=== PATIENT | female | born 1990 | race African-American/Black ===

== ENCOUNTER 2017-02-17 11:56 | Inpatient (IN) | payer MEDICAID ==
[2017-02-17] MEDS ORDERED: MAGNESIUM SULFATE/D5W 2 GM/200 ML RTUPB IV ONE (12:05)
--- NOTE | 2017-02-17 12:06 | ER Document Report ---
ED General - General Chief Complaint: Seizure Stated Complaint: POSSIBLE SEIZURE Time Seen by Provider: 02/17/17 12:02 Mode of Arrival: Medic Information source: Emergency Med Personnel Cannot obtain history due to: Other - unresponsive, postictal Notes: This is a 26-year-old female who per family is around 5 months , for whom EMS was called for seizures. Patient has no prior history of seizures. EMS states that patient had 5 seizures described as generalized tonic-clonic prior to their arrival. Patient did have 2 seizures in route to the hospital in both were treated with Versed for a total of 4 mg of Versed in route. EMS also gave 2 g of magnesium in route. The patient minimally responsive and postictal upon arrival. TRAVEL OUTSIDE OF THE [place] IN LAST 30 DAYS: No - Related Data Allergies/Adverse Reactions: ibuprofen [From Motrin] Allergy (Verified 12/12/14 21:37) Past Medical History - General Information source: Friend - Social History Smoking Status: Unknown if Ever Smoked Frequency of alcohol use: unknown Drug Abuse: Other - unknown Family History: Reviewed & Not Pertinent - Past Medical History Cardiac Medical History: Reports: Hx Hypertension Surgical Hx: Other - unknown - Immunizations Immunizations up to date: Yes Hx Diphtheria, Pertussis, Tetanus Vaccination: Yes Hx Pneumococcal Vaccination: 11/02/12 Review of Systems - Review of Systems -: Yes ROS unobtainable due to patient's medical condition Physical Exam - General General appearance: Unresponsive Notes: spontaneous respirations, gag reflex appears to be intact. Minimal response to sternal rub. - HEENT Head: Normocephalic, Atraumatic Conjunctiva: Normal Notes: pupils 3mm, minimally responsive - Respiratory Respiratory status: No respiratory distress Breath sounds: Other - CTA bilaterally anteriorly - Cardiovascular Rhythm: Regular, Tachycardia Heart sounds: Normal auscultation, S1 appreciated, S2 appreciated Murmur: No - Abdominal Inspection: Other - gravic Bowel sounds: Normal Tenderness: Nontender - Extremities General upper extremity: Normal inspection General lower extremity: Normal inspection - Neurological Notes: postictal, minimally responsive, unable to follow commands - Skin Skin Temperature: Warm Skin Moisture: Dry Skin Color: Normal Skin irregularity: negative: Rash Course - Re-evaluation Re-evalutation: 02/17/17 12:05 Patient presents minimally responsive and post ictal after total of 4 mg of Versed by EMS. She is still hypertensive with systolic 190. heart tones are 138-148. I discussed the case immediately with OB agricultural extension officer Dr. Oliver who is on her way here to evaluate the patient as well. Per family the patient is due sometime in May which puts her at a minimum of 24 weeks at this time. 02/17/17 12:[address] Oliver is here evaluating the patient. Magnesium is infusing. She has received labetalol. Bedside ultrasound is being performed. At this time the patient continues spontaneous respirations but no purposeful movements as she is still post ictal and has received benzos. I have equipment for intubation ready... discussed with OB who advises to hold intubation at this time. Pt satting 100% on NRB. 02/17/17 12:44 Dr. Oliver performing bedside ultrasound and heart tones 128. No sign of maurice abruption at this time. Betamethasone ordered 02/17/17 13:21 Patient returned from head CT. Magnesium infusing. Blood pressure 151/118. Dr. Oliver again with bedside ultrasound is concerning for possible abruption and decision made to take patient for emergent at this time. - Laboratory Result Diagrams: 02/17/17 12:15 02/17/17 12:58 Laboratory results interpreted by me: 02/17/17 02/17/17 12:15 12:58 WBC 15.2 H Hgb 11.8 L MCV 78 L MCH 23.1 L MCHC 29.7 L RDW 25.1 H Plt Count 146 L Band Neutrophils % 1 L Monocytes % (Manual) 2 L Metamyelocytes % 1 H Abs Neuts (Manual) 12.0 H Sodium 132.3 L Glucose 219 H Uric Acid 10.3 H Calcium 8.3 L Direct Bilirubin 0.6 H AST 191 H ALT 76 H Alkaline Phosphatase 302 H Lactate Dehydrogenase 2814 H Total Protein 5.9 L Albumin 2.6 L - Diagnostic Test Radiology reviewed: Image reviewed - Head CT normal, Reports reviewed Critical Care Note - Critical Care Note Total time excluding time spent on procedures (mins): 45 - minutes of critical care time spent in direct contact evaluating and reevaluating the patient, treating symptoms, reviewing labs and studies and speaking with family and consultants excluding any procedures Discharge - Discharge Clinical Impression: Eclampsia Condition: Critical Disposition: ADMITTED INPATIENT Admitting Provider: [facility] - Dr. Oliver Unit Admitted: OR - to OR for , then to ICU
[2017-02-17] MEDS ORDERED: HYDRALAZINE HCL INJ/PF 20 MG/1 ML SDV ONE (12:08)
[2017-02-17] MEDS ORDERED: LABETALOL HCL INJ 20 MG/4 ML DISP.SYRIN IV ONE ×2 (12:14→12:17)
[2017-02-17] MEDS ORDERED: MAGNESIUM SULFATE 100 ML IV ONE (12:18)
[2017-02-17 12:33] LABS: HEMATOCRIT 39.8 % (36.0-47.0); HEMOGLOBIN 11.8 g/dL (12.0-15.5); MEAN CORPUSCULAR HEMOGLOBIN 23.1 pg (27.0-33.4); MEAN CORPUSCULAR HGB CONC 29.7 g/dL (32.0-36.0); MEAN CORPUSCULAR VOLUME 78 fl (80-97); RED BLOOD COUNT 5.12 10^6/uL (3.72-5.28); RED CELL DISTRIBUTION WIDTH 25.1 % (11.5-14.0); WHITE BLOOD COUNT 15.2 10^3/uL (4.0-10.5)
[2017-02-17 12:55] LABS: HGB HCT DIFFERENCE -4.4
[2017-02-17 12:57] LABS: BAND NEUTROPHILS % (MANUAL) 1 % (3-5); BASOPHILS % (MANUAL) 0 % (0-2); EOSINOPHILS % (MANUAL) 0 % (0-6); LYMPHOCYTES % (MANUAL) 19 % (13-45); TOTAL CELLS COUNTED 100
[2017-02-17 13:01] LABS: ANISOCYTOSIS 2+; HELMET CELLS SLIGHT; HYPOCHROMASIA SLIGHT; MICROCYTOSIS 1+; POIKILOCYTOSIS 1+; POLYCHROMASIA SLIGHT
[2017-02-17 13:02] LABS: SCHISTOCYTES SLIGHT; TEAR DROP CELLS SLIGHT
[2017-02-17 13:03] LABS: PLATELET CLUMPS PRESENT
[2017-02-17] MEDS ORDERED: BETAMET ACET/BETAMET NA INJ 6 MG/1 ML IM ONE (13:08)
[2017-02-17] MEDS ORDERED: CEFAZOLIN 2 GM/D5W RTU 2 GM/50 ML RTUPB IV ONE (13:23)
[2017-02-17 13:39] LABS: ALANINE AMINOTRANSFERASE 76 U/L (9-52); ALBUMIN 2.6 g/dL (3.5-5.0); ALKALINE PHOSPHATASE 302 U/L (38-126); ANION GAP 6 (5-19); ASPARTATE AMINO TRANSFERASE 191 U/L (14-36); BILIRUBIN,DIRECT 0.6 mg/dL (0.0-0.4); BILIRUBIN,TOTAL 0.9 mg/dL (0.2-1.3); BLOOD UREA NITROGEN 10 mg/dL (7-20); CALCIUM 8.3 mg/dL (8.4-10.2); CARBON DIOXIDE 22 mmol/L (22-30); CHLORIDE 104 mmol/L (98-107); CREATININE RESULT 0.85 mg/dL (0.52-1.25); GLUCOSE 219 mg/dL (75-110); POTASSIUM 3.7 mmol/L (3.6-5.0); SODIUM 132.3 mmol/L (137-145); TOTAL PROTEIN 5.9 g/dL (6.3-8.2); URIC ACID 10.3 mg/dL (2.5-6.2)
[2017-02-17] MEDS ORDERED: PROPOFOL INJ 200 MG/20 ML VIAL IV ONE (13:40)
[2017-02-17] MEDS ORDERED: OXYTOCIN 10 UNIT/ML VIAL ONE (13:40)
[2017-02-17] MEDS ORDERED: FENTANYL CITRATE INJ/PF 100 MCG/2 ML AMPUL ONE (13:40)
[2017-02-17] MEDS ORDERED: MORPHINE SULFATE 10 MG/ML INJ ONE (13:41)
[2017-02-17 13:47] LABS: LDH 2814 U/L (313-618)
[2017-02-17 14:01] LABS: ARTERIAL BLOOD BASE EXCESS -8.6 mmol/L; ARTERIAL BLOOD O2 SATURATION 29.7 % (94-98)
[2017-02-17 14:23] LABS: PROTHROMBIN TIME 13.2 SEC (11.4-15.4)
[2017-02-17 14:24] LABS: PARTIAL THROMBOPLASTIN TIME 28.7 SEC (23.5-35.8)
--- NOTE | 2017-02-17 14:50 | Admission Physical ---
Datetime Report Generated by CPN: 02/17/2017 14:50 CURRENT ADMISSION Chief Complaint: Signs/Symptoms Gestational HTN; Illness; Other Chief Complaint Other: multiple seizures at home and 2 observed by equipment operat0r in route to hospital. was given Mag and Versed (4 mg) enroute. Patient not responsive entire time in ambulance and in ER. Indication for Induction: Eclampsia Indication for Induction- Other: HELLP syndrome, signs of abruption identified on sono and nonreassuring status. Admit Plan: Admit to Unit Admit Plan- Other: emergent c/s for abruption performed with verbal permission from [facility] and patient's brother. ALLERGIES Medication Allergies: ibuprofen (12/12/2014) PHYSICAL EXAM General: Abnormal HEENT: Abnormal Neurologic: Abnormal Thyroid: Normal Heart: Normal Lungs: Normal Breast: Normal Back: Normal Abdomen: Normal Genitourinary Exam: Normal Extremities: Normal DTRs: Abnormal Pelvic Type: Not Done Physical Exam Comments: 2+ DTRs. patient unresponsive as above. O2 sat 100% on room air, BPs all severe range except for immediately after Labetolol given. attempts to illicit response from patient unsuccessful. Vital Signs: Reviewed Details Vital Signs: severe range pressures FETUS A FHR- Baseline: 120 Presentation: Vertex Admit Comment: see above comments regarding emergent delivery by classical delivery INFORMED CONSENT Signature: with User ID: [email or web address]
[2017-02-17] MEDS ORDERED: ACETAMINOPHEN 325 MG TABLET PO PRN (14:51)
[2017-02-17] MEDS ORDERED: SIMETHICONE 80 MG TAB.CHEW PO PRN (14:51)
[2017-02-17] MEDS ORDERED: RINGERS SOLUTION,LACTATED 1,000 ML IV PRN (14:51)
[2017-02-17] MEDS ORDERED: ACETAMINOPHEN 100 ML IV PRN (14:51)
[2017-02-17] MEDS ORDERED: OXYTOCIN/NORMAL SALINE 1,000 ML IV PRN (14:51)
[2017-02-17] MEDS ORDERED: MEASLES,MUMPS&RUBELLA VACC/PF 0.5 ML VIAL SUBCUT PRN (14:51)
[2017-02-17] MEDS ORDERED: DIPH/PERTUSS(ACELL)/TETANUS VAC/PF 0.5 ML SYR (>=10YO) IM PRN (14:51)
[2017-02-17] MEDS ORDERED: DEXTROSE 50%-WATER 25 GM/50 ML DISP.SYRIN IV PRN ×2 (14:56)
[2017-02-17] MEDS ORDERED: DEXTROSE 40% GEL 15 GM TUBE PO PRN ×2 (14:56)
[2017-02-17] MEDS ORDERED: GLUCAGON,HUMAN RECOMB 1 MG INJ SUBCUT PRN (14:56)
[2017-02-17 15:45] LABS: ARTERIAL BLOOD BASE EXCESS -5.4 mmol/L; ARTERIAL BLOOD O2 SATURATION 96.8 % (94-98)
[2017-02-17 15:46] LABS: APPEARANCE,URINE CLEAR; BILIRUBIN,URINE NEGATIVE (NEGATIVE); GLUCOSE, URINE NEGATIVE (NEGATIVE); KETONES,URINE NEGATIVE (NEGATIVE); LEUKOCYTE ESTERASE,URINE NEGATIVE (NEGATIVE); NITRITE,URINE NEGATIVE (NEGATIVE); PROTEIN,URINE 100 mg/dL (NEGATIVE); URINE SPECIFIC GRAVITY 1.008; UROBILINOGEN,URINE NEGATIVE mg/dL (<2.0)
[2017-02-17] MEDS ORDERED: PHARMACY COMMUNICATION ORDER MC NR (16:00)
[2017-02-17] MEDS ORDERED: ACETAMINOPHEN 325 MG TABLET NG PRN (16:04)
[2017-02-17] MEDS ORDERED: ACETAMINOPHEN 325 MG TABLET NG ONE (16:04)
[2017-02-17] MEDS ORDERED: SIMETHICONE 80 MG TAB.CHEW NG PRN (16:05)
[2017-02-17 16:10] LABS: URINE BARBITURATES SCREEN NEGATIVE; URINE METHADONE SCREEN NEGATIVE; URINE PHENCYCLIDINE SCREEN NEGATIVE
[2017-02-17 16:13] LABS: URINE OPIATES LOW UNCONFIRMED POSITIVE
--- NOTE | 2017-02-17 16:14 | OPERATIVE REPORT E ---
Operative Report NAME: TONY MELTON : 1990 AGE: 26Y DATE OF SURGERY: ROOM: 605 PREOPERATIVE DIAGNOSES: 1. Intrauterine at 26 weeks and 0 days. 2. Eclampsia. 3. Hemolysis, elevated liver enzymes, and low platelet count syndrome. 4. Abruption. POSTOPERATIVE DIAGNOSES: 1. Intrauterine at 26 weeks and 0 days. 2. Eclampsia. 3. Hemolysis, elevated liver enzymes, and low platelet count syndrome. 4. Abruption. OPERATION: section with classical uterine incision. SURGEON: RADHA ROMAN M.D. ANESTHESIA: Dr. Prince with general. ESTIMATED BLOOD LOSS: 700 mL. FINDINGS: An approximately 26-week gestational age female infant, cephalic presentation, with a tight nuchal cord x3, partial abruption of the placenta, poor conditions of the placenta. Apgars are unknown at this time. Pathology was, placenta was sent. Cord gases were sent. CONSENT: After informed consent was obtained from the family members, as the patient was unresponsive, her brother and father of her most current children did give consent for an emergent due to the details of the patient's condition. The patient was taken to the operating room and above-noted was performed. PROCEDURE IN DETAIL: The patient was taken to the operating room, prepared and draped in a normal sterile fashion in the supine position. A Pfannenstiel skin incision was made with a scalpel and then carried through the underlying layer of fascia with the same scalpel. The rectus fascia was divided, and the rectus muscle was divided quickly. With good visualization of the bladder and the uterus, a second scalpel was used to create the hysterotomy in a vertical fashion. The endometrial cavity was entered as quickly as possible using surgeon finger fracture. The placenta was then noted, and the abruption was noted as well. The infant was then delivered atraumatically with the above nuchal cord findings noted. The nose and mouth were suctioned with a suction bulb. The cord was clamped and cut quickly, and the infant was handed off to the awaiting neonatology nurse present. The rest of the placenta was removed. The uterus was exteriorized and cleared of clots and debris. The hysterotomy was closed in a running locked fashion. A second layer of same suture was used to imbricate to ensure hemostasis, and the serosa was closed again with #0 Monocryl for a total of 3 layers of closure. Interceed was then placed along the incision. The uterus was then replaced to the abdomen. The peritoneal cavity was cleared of clots and debris. The rectus muscle and peritoneum were reapproximated with 2-0 chromic mattress stitch. The fascia was closed with #0 Vicryl. The subcutaneous layer was closed with plain catgut, and the skin was closed with 4-0 Vicryl. The patient tolerated the procedure well. Sponge, lap, and needle counts were correct x2, and the patient was taken to the ICU in critical condition. DICTATING PHYSICIAN: RADHA ROMAN M.D. [id number] PHY#: [id number] ID: [id number] JOB#: [id number] ACCT: [id number] cc:RADHA ROMAN M.D. >
[2017-02-17 16:20] LABS: PROTHROMBIN TIME 13.4 SEC (11.4-15.4)
[2017-02-17 16:21] LABS: FIBRINOGEN 502 mg/dL (209-497); PARTIAL THROMBOPLASTIN TIME 32.7 SEC (23.5-35.8)
[2017-02-17 16:33] LABS: ALANINE AMINOTRANSFERASE 83 U/L (9-52); ALBUMIN 2.2 g/dL (3.5-5.0); ALKALINE PHOSPHATASE 258 U/L (38-126); ASPARTATE AMINO TRANSFERASE 195 U/L (14-36); BILIRUBIN,DIRECT 0.4 mg/dL (0.0-0.4); BILIRUBIN,TOTAL 0.5 mg/dL (0.2-1.3); BLOOD UREA NITROGEN 10 mg/dL (7-20); CALCIUM 7.7 mg/dL (8.4-10.2); CARBON DIOXIDE 23 mmol/L (22-30); CHLORIDE 107 mmol/L (98-107); CREATININE RESULT 0.78 mg/dL (0.52-1.25); GLUCOSE 78 mg/dL (75-110); TOTAL PROTEIN 4.9 g/dL (6.3-8.2)
[2017-02-17 16:43] LABS: POTASSIUM 3.9 mmol/L (3.6-5.0); SODIUM 133.9 mmol/L (137-145)
--- NOTE | 2017-02-17 16:43 | PDOC CONSULTATION ---
Consultation Consult Date: 02/17/17 Attending physician:: RADHA ROMAN Consult reason:: Ventilator management History of Present Illness Admission Date/PCP: 02/17/17 13:29 RADHA ROMAN MD Patient complains of: Seizure History of Present Illness: TONY MELTON is a 26 year old female, with prior history of hypertension, who is currently in her second trimester of was brought to the emergency room because of multiple seizure episodes. The ambulance was called and the patient was given Versed and magnesium . She was hypertensive on presentation. Patient was intubated, emergent section was performed, eventually was transferred to the intensive care unit. Patient's blood pressure has improved, she is on Diprivan drip. Dr. Roman called for management of ventilator. No noted prior history other than gestational hypertension. Past Medical History Past Medical History: Medication reconciliation pending verification from the patient's pharmacist. Cardiac Medical History: Reports: Hypertension Endocrine Medical History: Reports: Obesity Past Surgical History Past Surgical History: Unknown at this time. Social History Information Source: [facility] Records Smoking Status: Current Every Day Smoker - Reportedly Frequency of Alcohol Use: None Hx Recreational Drug Use: No Drugs: None Family History Family History: Hypertension, Other - Aneurysm of the brain Parental Family History Reviewed: No - unobtainable at this time Children Family History Reviewed: No Sibling(s) Family History Reviewed.: No Medication/Allergy Home Medications: Nifedipine [Procardia Xl 30 mg Tablet] 90 mg PO QAM #90 tab.er.24 12/15/14 Oxycodone HCl/Acetaminophen [Percocet 5-325 mg Tablet] 1 - 2 tab PO ASDIR PRN # 25 tablet 12/15/14 Labetalol HCl [Normodyne 200 mg Tablet] 300 mg PO Q12 #60 tablet 12/16/14 Allergies/Adverse Reactions: ibuprofen [From Motrin] Allergy (Verified 12/12/14 21:37) Review of Systems ROS unobtainable: Due to endotracheal tube, Due to mental status Physical Exam Vital Signs: Temp Pulse Resp BP Pulse Ox 97.6 F 92 25 H 116/90 H 100 02/17/17 16:00 02/17/17 16:00 02/17/17 16:10 02/17/17 16:02 02/17/17 16:10 Intake & Output 02/16/17 02/17/17 02/18/17 06:59 06:59 06:59 Output Total 165 Balance -165 Weight 80 kg General appearance: PRESENT: no acute distress, morbidly obese, other - Intubated and sedated Head exam: PRESENT: atraumatic, normocephalic Eye exam: PRESENT: conjunctiva pink Ear exam: PRESENT: normal external ear exam. ABSENT: drainage Mouth exam: PRESENT: moist, neck supple Neck exam: ABSENT: carotid bruit, JVD Respiratory exam: PRESENT: clear to auscultation bob. ABSENT: retraction, rhonchi, wheezes Cardiovascular exam: PRESENT: RRR. ABSENT: gallop GI/Abdominal exam: PRESENT: hypoactive bowel sounds, soft. ABSENT: distended - Obese Extremities exam: ABSENT: pedal edema Neurological exam: PRESENT: altered - On Diprivan drip Psychiatric exam: ABSENT: agitated Focused psych exam: ABSENT: restlessness Skin exam: PRESENT: dry, warm. ABSENT: cyanosis Results Laboratory Results: 02/17/17 02/17/17 02/17/17 13:37 15:15 15:30 WBC RBC Hgb Hct MCV MCH MCHC RDW Plt Count Carbonic Acid 3.00 H 1.32 HCO3/H2CO3 Ratio 8:1 15:1 ABG pH 7.01 L* 7.30 L ABG pCO2 99.7 H* 43.9 ABG pO2 28.4 L* 98.4 ABG HCO3 24.7 20.9 ABG O2 Saturation 29.7 L 96.8 ABG Base Excess -8.6 -5.4 FiO2 CORD BLOOD 30% Urine Color YELLOW Urine Appearance CLEAR Urine pH 6.0 Ur Specific Malcolm 1.008 Urine Protein 100 H Urine Glucose (UA) NEGATIVE Urine Ketones NEGATIVE Urine Blood LARGE H Urine Nitrite NEGATIVE Ur Leukocyte Esterase NEGATIVE Urine WBC (Auto) 4 Urine RBC (Auto) 2 02/17/17 15:57 WBC Cancelled RBC Cancelled Hgb Cancelled Hct Cancelled MCV Cancelled MCH Cancelled MCHC Cancelled RDW Cancelled Plt Count Cancelled Carbonic Acid HCO3/H2CO3 Ratio ABG pH ABG pCO2 ABG pO2 ABG HCO3 ABG O2 Saturation ABG Base Excess FiO2 Urine Color Urine Appearance Urine pH Ur Specific Malcolm Urine Protein Urine Glucose (UA) Urine Ketones Urine Blood Urine Nitrite Ur Leukocyte Esterase Urine WBC (Auto) Urine RBC (Auto) Impressions: Obstetrics Ultrasound 02/17/17 00:00 IMPRESSION: Heterogeneous mass in the placenta as noted above which is suspicious for a placental abruption. Clinical correlation is recommended. Other findings as noted above Trimester of : Second trimester - 13 weeks 1 day to [address] 02/17/17 12:42 IMPRESSION: NORMAL BRAIN CT WITHOUT CONTRAST. Chest X-Ray 02/17/17 14:54 IMPRESSION: 1. No acute findings in the chest. 2. Support lines and tubes are in satisfactory position. Assessment & Plan - Diagnosis (1) Acute respiratory failure with hypercapnia Is this a current diagnosis for this admission?: Yes (2) Eclampsia Is this a current diagnosis for this admission?: Yes (3) Transaminitis Is this a current diagnosis for this admission?: Yes (4) Hyperglycemia Is this a current diagnosis for this admission?: Yes - Time Time Spent: 50 to 70 Minutes - Plan Summary Plan Summary: Mechanical ventilation with SIMV and pressure support for airway protection. We will do a follow-up chest x-ray and ABG, routine pulmonary toilette per ICU protocol. No reported nor documented history of chronic pulmonary condition, we will try to extubate the patient in the morning. Case discussed with Dr. Roman . Thank you so much for letting us participate in her care. We will follow the patient with you.
[2017-02-17] MEDS: MORPHINE SULFATE 10 MG/ML INJ IV PRN ×3 (16:46→21:27)
[2017-02-17 16:47] LABS: ANION GAP 4 (5-19)
[2017-02-17] MEDS: MAGNESIUM SULFATE 500 ML IV PRN ×2 (16:55→23:11)
[2017-02-17] MEDS: PROPOFOL 100 ML IV PRN ×2 (16:57→19:03)
[2017-02-17 17:04] LABS: HEMATOCRIT 27.3 % (36.0-47.0); HGB HCT DIFFERENCE -1.2; MEAN CORPUSCULAR HEMOGLOBIN 23.2 pg (27.0-33.4); MEAN CORPUSCULAR HGB CONC 31.9 g/dL (32.0-36.0); RED BLOOD COUNT 3.74 10^6/uL (3.72-5.28); WHITE BLOOD COUNT 13.7 10^3/uL (4.0-10.5)
[2017-02-17 17:09] LABS: BASOPHILS % (MANUAL) 0 % (0-2); EOSINOPHILS % (MANUAL) 0 % (0-6); LYMPHOCYTES % (MANUAL) 3 % (13-45); NUCLEATED RED BLOOD CELLS 1 /100 WBC (0); TOTAL CELLS COUNTED 100
[2017-02-17 17:12] LABS: ANISOCYTOSIS 2+; HYPOCHROMASIA 1+; MICROCYTOSIS 2+; OVALOCYTES SLIGHT; POIKILOCYTOSIS 1+; TEAR DROP CELLS SLIGHT
[2017-02-17 17:13] LABS: HEMOGLOBIN 8.7 g/dL (12.0-15.5)
[2017-02-17 17:14] LABS: MEAN CORPUSCULAR VOLUME 73 fl (80-97)
[2017-02-17 17:31] LABS: ALANINE AMINOTRANSFERASE 79 U/L (9-52); ALBUMIN 2.2 g/dL (3.5-5.0); ALKALINE PHOSPHATASE 243 U/L (38-126); ASPARTATE AMINO TRANSFERASE 195 U/L (14-36); BILIRUBIN,DIRECT 0.5 mg/dL (0.0-0.4); BILIRUBIN,TOTAL 0.6 mg/dL (0.2-1.3); BLOOD UREA NITROGEN 11 mg/dL (7-20); CALCIUM 7.6 mg/dL (8.4-10.2); CARBON DIOXIDE 22 mmol/L (22-30); CHLORIDE 107 mmol/L (98-107); CREATININE RESULT 0.73 mg/dL (0.52-1.25); GLUCOSE 81 mg/dL (75-110); POTASSIUM 3.9 mmol/L (3.6-5.0); SODIUM 131.9 mmol/L (137-145); TOTAL PROTEIN 4.9 g/dL (6.3-8.2); URIC ACID 9.2 mg/dL (2.5-6.2)
[2017-02-17 17:42] LABS: ANION GAP 3 (5-19); LDH 2621 U/L (313-618)
[2017-02-17] MEDS ORDERED: DOCUSATE SODIUM 100 MG CAPSULE PO SCH (18:00)
--- NOTE | 2017-02-17 19:31 | Delivery Summary ---
Del Sum A-C Datetime Report Generated by CPN: 02/17/2017 19:30 DELIVERY PERSONNEL DELIVERY PERSONNEL: [id number] Delivery Doctor:: Sowmya Oliver MD Anesthesiologist:: Chioma Prince MD ENTRY LEVEL TRUCK DRIVER:: Jose Jensen CRNA Labor and Delivery Nurse:: Sissy Avina RN Intellectual Property Manager:: Kelsey Louise RN Neonatal Nurse Practitioner:: SERGO King Nursery Nurse:: Annelise Morton RN Superintendent/EQUIPMENT PROCESSER STORAGE: Shi De Santiago CST Superintendent/EQUIPMENT PROCESSER STORAGE: Juarez Morales CHUTE PULLER MATERNAL INFORMATION Delivery Anesthesia: General Medications After Delivery: Pitocin Bolus-Please Comment Meds After Delivery Comment: Pitocin 20 units in 1000 mL NS Estimated Blood Loss (ml): 700 Maternal Complications: Abruptio Placenta; Seizures LABOR SUMMARY No. Babies in Womb: 1 Attempted: No LABOR INFORMATION Reason for Induction: Not Applicable Oxytocin: N/A Group B Beta Strep: unknown Steroids Given: Partial Course Reason Steroids Not Administered: Maternal Indication; Imminent Delivery MEMBRANES Membranes Rupture Method: Artificial Rupture of Membranes: 02/17/2017 13:37 Length of Rupture (hr): 0.00 Amniotic Fluid Color: Clear Amniotic Fluid Amount: Small Amniotic Fluid Odor: Normal STAGES OF LABOR Stage 3 hr: 0 Stage 3 min: 1 VAGINAL DELIVERY Episiotomy: None Laceration Extension: N/A Laceration Type: None Sponge Count Correct: N/A Sharps Count Correct: N/A CSECTION DELIVERY Primary Indication: Abruptio Placenta Secondary Indication: Other Other Secondary Indication: HELLP, Eclampsia CSection Urgency: Emergency CSection Incidence: Primary Labor: No Labor Elective: Nonelective CSection Incision: Classical BABY A INFORMATION Infant Delivery Date/Time: 02/17/2017 13:37 Method of Delivery: Born in Route : No : N/A Forceps: N/A Vacuum Extraction: N/A Shoulder Dystocia : No PRESENTATION/POSITION BABY A Presentation: Cephalic Cephalic Presentation: Vertex PLACENTA INFORMATION BABY A Placenta Delivery Time : 02/17/2017 13:38 Placenta Method of Delivery: Manual Removal Placenta Status: Delivered SCORES BABY A Heart Rate 1 min: >100 bpm Resp Effort 1 min: Good Cry Reflex Irritability 1 min: Grimace Muscle Tone 1 min: Flaccid Color 1 min: Blue/Pale Resuscitation Effort 1 min: Tactile Stimulation SCORE 1 MIN: 5 Heart Rate 5 min: >100 bpm Resp Effort 5 min: Good Cry Reflex Irritability 5 min: Grimace Muscle Tone 5 min: Some Flexion of Extremities Color 5 min: Body [place], Extremities Blue SCORE 5 MIN: 7 INFANT INFORMATION BABY A Gestational Age at Delivery: 27.0 Gestational Status: - <34 Weeks Outcome : Liveborn Infant Condition : Critical Infant Sex: Female IDENTIFICATION BABY A Verification Date/Time: 02/17/2017 13:32 ID Band Number: [id number] Mother's Name Verified: Yes RN Verifying : Kaela Bee, RN Additional Verifying Personnel: Mariana Alvarez RN WEIGHT/LENGTH BABY A Infant Birthweight (gm): 820 Infant Weight (lb): 1 Infant Weight (oz): 13 Length (in): 13.00 Length (cm): 33.02 CORD INFORMATION BABY A No. Cord Vessels: 3 Nuchal Cord : around neck x3, tight Nuchal Cord- Other: x3 Cord Blood Taken: Yes-For Storage (Mom's Blood type +) ASSESSMENT BABY A Skin to Skin: No Overlay Plastician/ALS Called : Yes Infant Care By: E. Barrow RN Transferred To: NICU BABY B INFORMATION : N/A
[2017-02-17] MEDS ORDERED: BETAMET ACET/BETAMET NA INJ 6 MG/1 ML ONE (19:36)
[2017-02-17] MEDS ORDERED: MAGNESIUM SULFATE 4 GM/100 ML RTUPB IV ONE (19:36)
[2017-02-17] MEDS ORDERED: NORMAL SALINE 250 ML IV PRN (19:46)
[2017-02-17] MEDS ORDERED: DIPHENHYDRAMINE HCL 25 MG/10 ML UDC PO ONE (19:50)
[2017-02-17 20:05] LABS: FIBRINOGEN 503 mg/dL (209-497); PARTIAL THROMBOPLASTIN TIME 33.6 SEC (23.5-35.8); PROTHROMBIN TIME 12.9 SEC (11.4-15.4)
[2017-02-17 20:22] LABS: ALANINE AMINOTRANSFERASE 81 U/L (9-52); ALBUMIN 2.2 g/dL (3.5-5.0); ALKALINE PHOSPHATASE 237 U/L (38-126); ASPARTATE AMINO TRANSFERASE 183 U/L (14-36); BILIRUBIN,DIRECT 0.3 mg/dL (0.0-0.4); BILIRUBIN,TOTAL 0.4 mg/dL (0.2-1.3); BLOOD UREA NITROGEN 11 mg/dL (7-20); CALCIUM 7.5 mg/dL (8.4-10.2); CARBON DIOXIDE 22 mmol/L (22-30); CHLORIDE 107 mmol/L (98-107); CREATININE RESULT 0.73 mg/dL (0.52-1.25); GLUCOSE 94 mg/dL (75-110); POTASSIUM 3.7 mmol/L (3.6-5.0); SODIUM 131.8 mmol/L (137-145); TOTAL PROTEIN 4.9 g/dL (6.3-8.2); URIC ACID 9.1 mg/dL (2.5-6.2)
[2017-02-17] MEDS ORDERED: ACETAMINOPHEN 325 MG TABLET ONE (20:23)
[2017-02-17 20:39] LABS: LDH 2130 U/L (313-618)
[2017-02-17 20:40] LABS: MAGNESIUM 6.9 mg/dL (1.6-2.3)
[2017-02-17 20:41] LABS: ANION GAP 3 (5-19)
[2017-02-17 20:43] LABS: HEMATOCRIT 27.2 % (36.0-47.0); HEMOGLOBIN 8.6 g/dL (12.0-15.5); HGB HCT DIFFERENCE -1.4; MEAN CORPUSCULAR HEMOGLOBIN 22.7 pg (27.0-33.4); MEAN CORPUSCULAR HGB CONC 31.5 g/dL (32.0-36.0); MEAN CORPUSCULAR VOLUME 72 fl (80-97); RED BLOOD COUNT 3.77 10^6/uL (3.72-5.28); RED CELL DISTRIBUTION WIDTH 25.3 % (11.5-14.0); WHITE BLOOD COUNT 11.3 10^3/uL (4.0-10.5)
[2017-02-17] MEDS ORDERED: MORPHINE SULFATE 10 MG/ML INJ IV ONE (21:00)
[2017-02-17 21:04] LABS: BAND NEUTROPHILS % (MANUAL) 2 % (3-5); BASOPHILS % (MANUAL) 0 % (0-2); EOSINOPHILS % (MANUAL) 0 % (0-6); LYMPHOCYTES % (MANUAL) 2 % (13-45); NUCLEATED RED BLOOD CELLS 1 /100 WBC (0); TOTAL CELLS COUNTED 100
[2017-02-17 21:08] LABS: HYPOCHROMASIA 2+; POLYCHROMASIA 1+
[2017-02-17 21:09] LABS: ANISOCYTOSIS 3+; MICROCYTOSIS 1+; OVALOCYTES SLIGHT; POIKILOCYTOSIS 1+; TARGET CELLS SLIGHT
[2017-02-17 21:10] LABS: HELMET CELLS SLIGHT
[2017-02-17 21:13] LABS: SCHISTOCYTES SLIGHT
[2017-02-18] MEDS: PROPOFOL 100 ML IV PRN ×2 (00:14→03:41)
[2017-02-18] MEDS: MORPHINE SULFATE 10 MG/ML INJ IV PRN ×2 (01:00→04:30)
[2017-02-18 01:40] LABS: ABSOLUTE LYMPHOCYTES (AUTO) 0.9 10^3/uL (0.5-4.7); ABSOLUTE MONOCYTES (AUTO) 0.4 10^3/uL (0.1-1.4); ABSOLUTE NEUT (AUTO) 10.5 10^3/uL (1.7-8.2); BASOPHILS % (AUTO) 0.3 % (0-2); HEMATOCRIT 28.3 % (36.0-47.0); HEMOGLOBIN 9.4 g/dL (12.0-15.5); HGB HCT DIFFERENCE -0.1; LYMPHOCYTES % (AUTO) 7.5 % (13-45); MEAN CORPUSCULAR HEMOGLOBIN 24.5 pg (27.0-33.4); MEAN CORPUSCULAR HGB CONC 33.3 g/dL (32.0-36.0); MEAN CORPUSCULAR VOLUME 74 fl (80-97); MONOCYTES % (AUTO) 3.4 % (3-13); RED BLOOD COUNT 3.84 10^6/uL (3.72-5.28); RED CELL DISTRIBUTION WIDTH 26.4 % (11.5-14.0); SEGMENTED NEUTROPHILS % (AUTO) 88.8 % (42-78); WHITE BLOOD COUNT 11.8 10^3/uL (4.0-10.5)
[2017-02-18 01:51] LABS: PROTHROMBIN TIME 12.9 SEC (11.4-15.4)
[2017-02-18 01:52] LABS: FIBRINOGEN 545 mg/dL (209-497); PARTIAL THROMBOPLASTIN TIME 34.1 SEC (23.5-35.8)
[2017-02-18 02:01] LABS: ALANINE AMINOTRANSFERASE 81 U/L (9-52); ALBUMIN 2.2 g/dL (3.5-5.0); ALKALINE PHOSPHATASE 214 U/L (38-126); ASPARTATE AMINO TRANSFERASE 189 U/L (14-36); BILIRUBIN,DIRECT 0.3 mg/dL (0.0-0.4); BILIRUBIN,TOTAL 0.4 mg/dL (0.2-1.3); BLOOD UREA NITROGEN 11 mg/dL (7-20); CALCIUM 7.3 mg/dL (8.4-10.2); CARBON DIOXIDE 22 mmol/L (22-30); CHLORIDE 107 mmol/L (98-107); CREATININE RESULT 0.79 mg/dL (0.52-1.25); GLUCOSE 87 mg/dL (75-110); SODIUM 132.7 mmol/L (137-145); TOTAL PROTEIN 4.8 g/dL (6.3-8.2); URIC ACID 9.4 mg/dL (2.5-6.2)
[2017-02-18 02:07] LABS: LDH 1908 U/L (313-618)
[2017-02-18 02:11] LABS: ANION GAP 4 (5-19); MAGNESIUM 8.5 mg/dL (1.6-2.3)
[2017-02-18 02:18] LABS: ANISOCYTOSIS 3+; BURR CELLS SLIGHT; HELMET CELLS SLIGHT; MICROCYTOSIS 1+; POIKILOCYTOSIS 1+; POLYCHROMASIA SLIGHT; SCHISTOCYTES SLIGHT; TARGET CELLS SLIGHT; TEAR DROP CELLS SLIGHT
[2017-02-18 02:24] LABS: HYPOCHROMASIA 2+
[2017-02-18] MEDS ORDERED: MAGNESIUM SULFATE 20 GM/500 ML RTUINJ IV PRN (05:57)
[2017-02-18 06:00] LABS: ARTERIAL BLOOD BASE EXCESS -3.5 mmol/L; ARTERIAL BLOOD O2 SATURATION 98.3 % (94-98)
--- NOTE | 2017-02-18 09:39 | PDOC PROGRESS REPORT ---
Subjective Progress Note for:: 02/18/17 Subjective:: Patient was awake and alert, sedation was being weaned. For extubation today. No reported temperature spikes, respiratory distress, nausea or vomiting, nor any increasing hemorrhage. Physical Exam Vital Signs: Temp Pulse Resp BP Pulse Ox 97.8 F 97 21 H 148/102 H 98 02/18/17 07:50 02/18/17 07:50 02/18/17 07:50 02/18/17 07:50 02/18/17 07:50 Intake & Output 02/17/17 02/18/17 02/19/17 06:59 06:59 06:59 Intake Total 2666 Output Total 1195 75 Balance 1471 -75 Weight 80.8 kg General appearance: PRESENT: no acute distress, obese Head exam: PRESENT: normocephalic Eye exam: PRESENT: conjunctiva pale Mouth exam: PRESENT: moist, neck supple Neck exam: ABSENT: JVD Respiratory exam: PRESENT: rhonchi - few. ABSENT: wheezes Cardiovascular exam: PRESENT: RRR. ABSENT: gallop GI/Abdominal exam: PRESENT: hypoactive bowel sounds, soft Extremities exam: ABSENT: pedal edema Skin exam: PRESENT: dry, warm. ABSENT: cyanosis Results Laboratory Results: 02/18/17 01:30 02/18/17 01:30 02/17/17 02/17/17 02/17/17 13:37 15:15 15:30 WBC RBC Hgb Hct MCV MCH MCHC RDW Plt Count Seg Neutrophils % Lymphocytes % Monocytes % Eosinophils % Basophils % Absolute Neutrophils Absolute Lymphocytes Absolute Monocytes Absolute Eosinophils Absolute Basophils Carbonic Acid 3.00 H 1.32 HCO3/H2CO3 Ratio 8:1 15:1 ABG pH 7.01 L* 7.30 L ABG pCO2 99.7 H* 43.9 ABG pO2 28.4 L* 98.4 ABG HCO3 24.7 20.9 ABG O2 Saturation 29.7 L 96.8 ABG Base Excess -8.6 -5.4 FiO2 CORD BLOOD 30% Sodium Potassium Chloride Carbon Dioxide Anion Gap BUN Creatinine Est GFR ( Amer) Est GFR (Non-Af Amer) Glucose Uric Acid Calcium Magnesium Total Bilirubin AST ALT Alkaline Phosphatase Total Protein Albumin Urine Color YELLOW Urine Appearance CLEAR Urine pH 6.0 Ur Specific [place] 1.008 Urine Protein 100 H Urine Glucose (UA) NEGATIVE Urine Ketones NEGATIVE Urine Blood LARGE H Urine Nitrite NEGATIVE Ur Leukocyte Esterase NEGATIVE Urine WBC (Auto) 4 Urine RBC (Auto) 2 Blood Type Antibody Screen 02/17/17 02/17/17 02/17/17 15:57 15:57 15:57 WBC Cancelled RBC Cancelled Hgb Cancelled Hct Cancelled MCV Cancelled MCH Cancelled MCHC Cancelled RDW Cancelled Plt Count Cancelled Seg Neutrophils % Cancelled Lymphocytes % Cancelled Monocytes % Cancelled Eosinophils % Cancelled Basophils % Cancelled Absolute Neutrophils Cancelled Absolute Lymphocytes Cancelled Absolute Monocytes Cancelled Absolute Eosinophils Cancelled Absolute Basophils Cancelled Carbonic Acid HCO3/H2CO3 Ratio ABG pH ABG pCO2 ABG pO2 ABG HCO3 ABG O2 Saturation ABG Base Excess FiO2 Sodium 133.9 L Potassium 3.9 Chloride 107 Carbon Dioxide 23 Anion Gap 4 L BUN 10 Creatinine 0.78 Est GFR ( Amer) > 60 Est GFR (Non-Af Amer) > 60 Glucose 78 Uric Acid Calcium 7.7 L Magnesium Total Bilirubin 0.5 AST 195 H ALT 83 H Alkaline Phosphatase 258 H Total Protein 4.9 L Albumin 2.2 L Urine Color Urine Appearance Urine pH Ur Specific [place] Urine Protein Urine Glucose (UA) Urine Ketones Urine Blood Urine Nitrite Ur Leukocyte Esterase Urine WBC (Auto) Urine RBC (Auto) Blood Type B POSITIVE Antibody Screen NEGATIVE 02/17/17 02/17/17 02/17/17 15:57 16:35 16:35 WBC Cancelled 13.7 H RBC Cancelled 3.74 Hgb Cancelled 8.7 L D Hct Cancelled 27.3 L MCV Cancelled 73 L D MCH Cancelled 23.2 L MCHC Cancelled 31.9 L RDW Cancelled 25.0 H Plt Count Cancelled 95 L Seg Neutrophils % Not Reportable Lymphocytes % Not Reportable Monocytes % Not Reportable Eosinophils % Not Reportable Basophils % Not Reportable Absolute Neutrophils Not Reportable Absolute Lymphocytes Not Reportable Absolute Monocytes Not Reportable Absolute Eosinophils Not Reportable Absolute Basophils Not Reportable Carbonic Acid HCO3/H2CO3 Ratio ABG pH ABG pCO2 ABG pO2 ABG HCO3 ABG O2 Saturation ABG Base Excess FiO2 Sodium 131.9 L Potassium 3.9 Chloride 107 Carbon Dioxide 22 Anion Gap 3 L BUN 11 Creatinine 0.73 Est GFR ( Amer) > 60 Est GFR (Non-Af Amer) > 60 Glucose 81 Uric Acid 9.2 H Calcium 7.6 L Magnesium Total Bilirubin 0.6 AST 195 H ALT 79 H Alkaline Phosphatase 243 H Total Protein 4.9 L Albumin 2.2 L Urine Color Urine Appearance Urine pH Ur Specific [place] Urine Protein Urine Glucose (UA) Urine Ketones Urine Blood Urine Nitrite Ur Leukocyte Esterase Urine WBC (Auto) Urine RBC (Auto) Blood Type Antibody Screen 02/17/17 02/17/17 02/17/17 19:44 19:44 20:37 WBC Cancelled 11.3 H RBC Cancelled 3.77 Hgb Cancelled 8.6 L Hct Cancelled 27.2 L MCV Cancelled 72 L MCH Cancelled 22.7 L MCHC Cancelled 31.5 L RDW Cancelled 25.3 H Plt Count Cancelled 89 L Seg Neutrophils % Cancelled Not Reportable Lymphocytes % Cancelled Not Reportable Monocytes % Cancelled Not Reportable Eosinophils % Cancelled Not Reportable Basophils % Cancelled Not Reportable Absolute Neutrophils Cancelled Not Reportable Absolute Lymphocytes Cancelled Not Reportable Absolute Monocytes Cancelled Not Reportable Absolute Eosinophils Cancelled Not Reportable Absolute Basophils Cancelled Not Reportable Carbonic Acid HCO3/H2CO3 Ratio ABG pH ABG pCO2 ABG pO2 ABG HCO3 ABG O2 Saturation ABG Base Excess FiO2 Sodium 131.8 L Potassium 3.7 Chloride 107 Carbon Dioxide 22 Anion Gap 3 L BUN 11 Creatinine 0.73 Est GFR ( Amer) > 60 Est GFR (Non-Af Amer) > 60 Glucose 94 Uric Acid 9.1 H Calcium 7.5 L Magnesium 6.9 H* Total Bilirubin 0.4 AST 183 H ALT 81 H Alkaline Phosphatase 237 H Total Protein 4.9 L Albumin 2.2 L Urine Color Urine Appearance Urine pH Ur Specific [place] Urine Protein Urine Glucose (UA) Urine Ketones Urine Blood Urine Nitrite Ur Leukocyte Esterase Urine WBC (Auto) Urine RBC (Auto) Blood Type Antibody Screen 02/18/17 02/18/17 02/18/17 01:30 01:30 05:50 WBC 11.8 H RBC 3.84 Hgb 9.4 L Hct 28.3 L MCV 74 L MCH 24.5 L MCHC 33.3 RDW 26.4 H Plt Count 96 L Seg Neutrophils % 88.8 H Lymphocytes % 7.5 L Monocytes % 3.4 Eosinophils % 0.0 Basophils % 0.3 Absolute Neutrophils 10.5 H Absolute Lymphocytes 0.9 Absolute Monocytes 0.4 Absolute Eosinophils 0.0 Absolute Basophils 0.0 Carbonic Acid 1.07 HCO3/H2CO3 Ratio 19:1 ABG pH 7.39 ABG pCO2 35.5 ABG pO2 118.1 H ABG HCO3 20.9 ABG O2 Saturation 98.3 H ABG Base Excess -3.5 FiO2 30% Sodium 132.7 L Potassium 4.0 Chloride 107 Carbon Dioxide 22 Anion Gap 4 L BUN 11 Creatinine 0.79 Est GFR ( Amer) > 60 Est GFR (Non-Af Amer) > 60 Glucose 87 Uric Acid 9.4 H Calcium 7.3 L Magnesium 8.5 H* D Total Bilirubin 0.4 AST 189 H ALT 81 H Alkaline Phosphatase 214 H Total Protein 4.8 L Albumin 2.2 L Urine Color Urine Appearance Urine pH Ur Specific [place] Urine Protein Urine Glucose (UA) Urine Ketones Urine Blood Urine Nitrite Ur Leukocyte Esterase Urine WBC (Auto) Urine RBC (Auto) Blood Type Antibody Screen Impressions: Obstetrics Ultrasound 02/17/17 00:00 IMPRESSION: Heterogeneous mass in the placenta as noted above which is suspicious for a placental abruption. Clinical correlation is recommended. Other findings as noted above Trimester of : Second trimester - 13 weeks 1 day to [address] 02/17/17 12:42 IMPRESSION: NORMAL BRAIN CT WITHOUT CONTRAST. Chest X-Ray 02/18/17 06:00 IMPRESSION: No acute cardiopulmonary findings. Lines and tubes. Assessment & Plan - Diagnosis (1) Acute respiratory failure with hypercapnia Is this a current diagnosis for this admission?: Yes (2) Eclampsia Is this a current diagnosis for this admission?: Yes (3) Transaminitis Is this a current diagnosis for this admission?: Yes (4) Hyperglycemia Is this a current diagnosis for this admission?: Yes - Time Time Spent with patient: 25-34 minutes - Plan Summary Plan Summary: We will extubate the patient today. Continue to monitor for any respiratory distress or failure. We will continue to follow.
[2017-02-18] MEDS ORDERED: HYDRALAZINE HCL INJ/PF 20 MG/1 ML SDV IV ONE (09:45)
--- NOTE | 2017-02-18 09:46 | PDOC PROGRESS REPORT ---
Subjective Progress Note for:: 02/18/17 Subjective:: She is combative in the ICU and now extubated. I am not sure if she is confused or just combative. Will follow. Physical Exam - Physical Exam Vital Signs: Temp Pulse Resp BP Pulse Ox 97.8 F 97 21 H 148/102 H 98 02/18/17 07:50 02/18/17 07:50 02/18/17 07:50 02/18/17 07:50 02/18/17 07:50 Intake & Output 02/17/17 02/18/17 02/19/17 06:59 06:59 06:59 Intake Total 2666 Output Total 1195 75 Balance 1471 -75 Weight 80.8 kg General appearance: PRESENT: mild distress Head exam: PRESENT: atraumatic - Incision is clean dry intact, normocephalic Result Laboratory Results: 02/18/17 01:30 02/18/17 01:30 02/17/17 02/17/17 02/17/17 13:37 15:15 15:30 WBC RBC Hgb Hct MCV MCH MCHC RDW Plt Count Seg Neutrophils % Lymphocytes % Monocytes % Eosinophils % Basophils % Absolute Neutrophils Absolute Lymphocytes Absolute Monocytes Absolute Eosinophils Absolute Basophils Carbonic Acid 3.00 H 1.32 HCO3/H2CO3 Ratio 8:1 15:1 ABG pH 7.01 L* 7.30 L ABG pCO2 99.7 H* 43.9 ABG pO2 28.4 L* 98.4 ABG HCO3 24.7 20.9 ABG O2 Saturation 29.7 L 96.8 ABG Base Excess -8.6 -5.4 FiO2 CORD BLOOD 30% Sodium Potassium Chloride Carbon Dioxide Anion Gap BUN Creatinine Est GFR ( Amer) Est GFR (Non-Af Amer) Glucose Uric Acid Calcium Magnesium Total Bilirubin AST ALT Alkaline Phosphatase Total Protein Albumin Urine Color YELLOW Urine Appearance CLEAR Urine pH 6.0 Ur Specific [place] 1.008 Urine Protein 100 H Urine Glucose (UA) NEGATIVE Urine Ketones NEGATIVE Urine Blood LARGE H Urine Nitrite NEGATIVE Ur Leukocyte Esterase NEGATIVE Urine WBC (Auto) 4 Urine RBC (Auto) 2 Blood Type Antibody Screen 02/17/17 02/17/17 02/17/17 15:57 15:57 15:57 WBC Cancelled RBC Cancelled Hgb Cancelled Hct Cancelled MCV Cancelled MCH Cancelled MCHC Cancelled RDW Cancelled Plt Count Cancelled Seg Neutrophils % Cancelled Lymphocytes % Cancelled Monocytes % Cancelled Eosinophils % Cancelled Basophils % Cancelled Absolute Neutrophils Cancelled Absolute Lymphocytes Cancelled Absolute Monocytes Cancelled Absolute Eosinophils Cancelled Absolute Basophils Cancelled Carbonic Acid HCO3/H2CO3 Ratio ABG pH ABG pCO2 ABG pO2 ABG HCO3 ABG O2 Saturation ABG Base Excess FiO2 Sodium 133.9 L Potassium 3.9 Chloride 107 Carbon Dioxide 23 Anion Gap 4 L BUN 10 Creatinine 0.78 Est GFR ( Amer) > 60 Est GFR (Non-Af Amer) > 60 Glucose 78 Uric Acid Calcium 7.7 L Magnesium Total Bilirubin 0.5 AST 195 H ALT 83 H Alkaline Phosphatase 258 H Total Protein 4.9 L Albumin 2.2 L Urine Color Urine Appearance Urine pH Ur Specific [place] Urine Protein Urine Glucose (UA) Urine Ketones Urine Blood Urine Nitrite Ur Leukocyte Esterase Urine WBC (Auto) Urine RBC (Auto) Blood Type B POSITIVE Antibody Screen NEGATIVE 02/17/17 02/17/17 02/17/17 15:57 16:35 16:35 WBC Cancelled 13.7 H RBC Cancelled 3.74 Hgb Cancelled 8.7 L D Hct Cancelled 27.3 L MCV Cancelled 73 L D MCH Cancelled 23.2 L MCHC Cancelled 31.9 L RDW Cancelled 25.0 H Plt Count Cancelled 95 L Seg Neutrophils % Not Reportable Lymphocytes % Not Reportable Monocytes % Not Reportable Eosinophils % Not Reportable Basophils % Not Reportable Absolute Neutrophils Not Reportable Absolute Lymphocytes Not Reportable Absolute Monocytes Not Reportable Absolute Eosinophils Not Reportable Absolute Basophils Not Reportable Carbonic Acid HCO3/H2CO3 Ratio ABG pH ABG pCO2 ABG pO2 ABG HCO3 ABG O2 Saturation ABG Base Excess FiO2 Sodium 131.9 L Potassium 3.9 Chloride 107 Carbon Dioxide 22 Anion Gap 3 L BUN 11 Creatinine 0.73 Est GFR ( Amer) > 60 Est GFR (Non-Af Amer) > 60 Glucose 81 Uric Acid 9.2 H Calcium 7.6 L Magnesium Total Bilirubin 0.6 AST 195 H ALT 79 H Alkaline Phosphatase 243 H Total Protein 4.9 L Albumin 2.2 L Urine Color Urine Appearance Urine pH Ur Specific [place] Urine Protein Urine Glucose (UA) Urine Ketones Urine Blood Urine Nitrite Ur Leukocyte Esterase Urine WBC (Auto) Urine RBC (Auto) Blood Type Antibody Screen 02/17/17 02/17/17 02/17/17 19:44 19:44 20:37 WBC Cancelled 11.3 H RBC Cancelled 3.77 Hgb Cancelled 8.6 L Hct Cancelled 27.2 L MCV Cancelled 72 L MCH Cancelled 22.7 L MCHC Cancelled 31.5 L RDW Cancelled 25.3 H Plt Count Cancelled 89 L Seg Neutrophils % Cancelled Not Reportable Lymphocytes % Cancelled Not Reportable Monocytes % Cancelled Not Reportable Eosinophils % Cancelled Not Reportable Basophils % Cancelled Not Reportable Absolute Neutrophils Cancelled Not Reportable Absolute Lymphocytes Cancelled Not Reportable Absolute Monocytes Cancelled Not Reportable Absolute Eosinophils Cancelled Not Reportable Absolute Basophils Cancelled Not Reportable Carbonic Acid HCO3/H2CO3 Ratio ABG pH ABG pCO2 ABG pO2 ABG HCO3 ABG O2 Saturation ABG Base Excess FiO2 Sodium 131.8 L Potassium 3.7 Chloride 107 Carbon Dioxide 22 Anion Gap 3 L BUN 11 Creatinine 0.73 Est GFR ( Amer) > 60 Est GFR (Non-Af Amer) > 60 Glucose 94 Uric Acid 9.1 H Calcium 7.5 L Magnesium 6.9 H* Total Bilirubin 0.4 AST 183 H ALT 81 H Alkaline Phosphatase 237 H Total Protein 4.9 L Albumin 2.2 L Urine Color Urine Appearance Urine pH Ur Specific [place] Urine Protein Urine Glucose (UA) Urine Ketones Urine Blood Urine Nitrite Ur Leukocyte Esterase Urine WBC (Auto) Urine RBC (Auto) Blood Type Antibody Screen 02/18/17 02/18/17 02/18/17 01:30 01:30 05:50 WBC 11.8 H RBC 3.84 Hgb 9.4 L Hct 28.3 L MCV 74 L MCH 24.5 L MCHC 33.3 RDW 26.4 H Plt Count 96 L Seg Neutrophils % 88.8 H Lymphocytes % 7.5 L Monocytes % 3.4 Eosinophils % 0.0 Basophils % 0.3 Absolute Neutrophils 10.5 H Absolute Lymphocytes 0.9 Absolute Monocytes 0.4 Absolute Eosinophils 0.0 Absolute Basophils 0.0 Carbonic Acid 1.07 HCO3/H2CO3 Ratio 19:1 ABG pH 7.39 ABG pCO2 35.5 ABG pO2 118.1 H ABG HCO3 20.9 ABG O2 Saturation 98.3 H ABG Base Excess -3.5 FiO2 30% Sodium 132.7 L Potassium 4.0 Chloride 107 Carbon Dioxide 22 Anion Gap 4 L BUN 11 Creatinine 0.79 Est GFR ( Amer) > 60 Est GFR (Non-Af Amer) > 60 Glucose 87 Uric Acid 9.4 H Calcium 7.3 L Magnesium 8.5 H* D Total Bilirubin 0.4 AST 189 H ALT 81 H Alkaline Phosphatase 214 H Total Protein 4.8 L Albumin 2.2 L Urine Color Urine Appearance Urine pH Ur Specific [place] Urine Protein Urine Glucose (UA) Urine Ketones Urine Blood Urine Nitrite Ur Leukocyte Esterase Urine WBC (Auto) Urine RBC (Auto) Blood Type Antibody Screen Impressions: Obstetrics Ultrasound 02/17/17 00:00 IMPRESSION: Heterogeneous mass in the placenta as noted above which is suspicious for a placental abruption. Clinical correlation is recommended. Other findings as noted above Trimester of : Second trimester - 13 weeks 1 day to [address] 02/17/17 12:42 IMPRESSION: NORMAL BRAIN CT WITHOUT CONTRAST. Chest X-Ray 02/18/17 06:00 IMPRESSION: No acute cardiopulmonary findings. Lines and tubes. Assessment & Plan - Diagnosis (1) Eclampsia Is this a current diagnosis for this admission?: YesPlan: Plan to manage blood pressure and supportive care post c section. Hopefully we will be able to wean the Magnesium today and move to the floor.
[2017-02-18] MEDS ORDERED: PRENATAL VITAMIN W-O CA NO5/FE FUMARATE/FA CAPSULE PO SCH (10:00)
[2017-02-18] MEDS ORDERED: PRENATAL VITAMIN W-O CA NO5/FE FUMARATE/FA CAPSULE NG SCH (10:00)
[2017-02-18] MEDS ORDERED: OXYTOCIN/NORMAL SALINE 1,000 ML IV PRN (10:02)
[2017-02-18] MEDS ORDERED: DIPH/PERTUSS(ACELL)/TETANUS VAC/PF 0.5 ML SYR (>=10YO) IM PRN (10:02)
[2017-02-18] MEDS ORDERED: SIMETHICONE 80 MG TAB.CHEW PO PRN (10:02)
[2017-02-18] MEDS ORDERED: MEASLES,MUMPS&RUBELLA VACC/PF 0.5 ML VIAL SUBCUT PRN (10:02)
[2017-02-18] MEDS ORDERED: OXYCODONE-ACETAMINOPHEN 5-325 MG TABLET PO PRN (10:02)
[2017-02-18] MEDS ORDERED: PROMETHAZINE HCL INJ 25 MG/1 ML VIAL IV PRN (10:02)
[2017-02-18] MEDS ORDERED: ACETAMINOPHEN 325 MG TABLET PO PRN (10:02)
[2017-02-18] MEDS ORDERED: HYDROMORPHONE HCL INJ/PF 2 MG/ML AMPULE IV PRN (10:02)
[2017-02-18] MEDS ORDERED: SUCCINYLCHOLINE CHLORIDE INJ 200 MG/10 ML VIAL ONE (12:16)
[2017-02-18] MEDS ORDERED: ROCURONIUM BROMIDE INJ 50 MG/5 ML VIAL IV ONE (12:16)
[2017-02-18] MEDS ORDERED: LABETALOL HCL 200 MG TABLET NG ONE (13:45)
[2017-02-18] MEDS: RINGERS SOLUTION,LACTATED 1,000 ML IV PRN ×2 (14:23→20:13)
[2017-02-18 15:12] LABS: ABSOLUTE LYMPHOCYTES (AUTO) 1.1 10^3/uL (0.5-4.7); ABSOLUTE MONOCYTES (AUTO) 1.1 10^3/uL (0.1-1.4); ABSOLUTE NEUT (AUTO) 15.6 10^3/uL (1.7-8.2); BASOPHILS % (AUTO) 0.2 % (0-2); EOSINOPHILS % (AUTO) 0.1 % (0-6); HEMATOCRIT 31.9 % (36.0-47.0); HEMOGLOBIN 10.4 g/dL (12.0-15.5); HGB HCT DIFFERENCE -0.7; LYMPHOCYTES % (AUTO) 6.2 % (13-45); MEAN CORPUSCULAR HEMOGLOBIN 24.5 pg (27.0-33.4); MEAN CORPUSCULAR HGB CONC 32.7 g/dL (32.0-36.0); MEAN CORPUSCULAR VOLUME 75 fl (80-97); MONOCYTES % (AUTO) 6.1 % (3-13); RED BLOOD COUNT 4.24 10^6/uL (3.72-5.28); SEGMENTED NEUTROPHILS % (AUTO) 87.4 % (42-78); WHITE BLOOD COUNT 17.8 10^3/uL (4.0-10.5)
[2017-02-18 15:16] LABS: PROTHROMBIN TIME 12.4 SEC (11.4-15.4)
[2017-02-18 15:17] LABS: FIBRINOGEN 572 mg/dL (209-497); PARTIAL THROMBOPLASTIN TIME 29.2 SEC (23.5-35.8)
[2017-02-18 15:23] LABS: ALANINE AMINOTRANSFERASE 109 U/L (9-52); ALBUMIN 2.3 g/dL (3.5-5.0); ALKALINE PHOSPHATASE 189 U/L (38-126); ANION GAP 6 (5-19); ASPARTATE AMINO TRANSFERASE 269 U/L (14-36); BILIRUBIN,DIRECT 0.3 mg/dL (0.0-0.4); BILIRUBIN,TOTAL 0.4 mg/dL (0.2-1.3); BLOOD UREA NITROGEN 13 mg/dL (7-20); CALCIUM 7.1 mg/dL (8.4-10.2); CARBON DIOXIDE 22 mmol/L (22-30); CHLORIDE 104 mmol/L (98-107); CREATININE RESULT 0.82 mg/dL (0.52-1.25); GLUCOSE 105 mg/dL (75-110); POTASSIUM 4.6 mmol/L (3.6-5.0); SODIUM 131.8 mmol/L (137-145); TOTAL PROTEIN 5.1 g/dL (6.3-8.2); URIC ACID 8.5 mg/dL (2.5-6.2)
[2017-02-18] MEDS: OXYCODONE-ACETAMINOPHEN 5-325 MG TABLET PO PRN (15:25)
[2017-02-18 15:41] LABS: LDH 2273 U/L (313-618)
[2017-02-18 15:43] LABS: MAGNESIUM 5.3 mg/dL (1.6-2.3)
[2017-02-18 15:59] LABS: HYPOCHROMASIA 1+; MICROCYTOSIS 1+
[2017-02-18 16:00] LABS: ANISOCYTOSIS 2+; HELMET CELLS SLIGHT; POIKILOCYTOSIS 1+; SCHISTOCYTES SLIGHT; TEAR DROP CELLS SLIGHT
[2017-02-18] MEDS ORDERED: DIAZEPAM 2 MG TABLET PO ONE (16:30)
[2017-02-18 16:40] LABS: ADD HIVPANEL? NO; HIV (1 AND 2) ANTIBODY NEGATIVE (NEGATIVE)
[2017-02-18] MEDS: DOCUSATE SODIUM 100 MG CAPSULE PO SCH (17:31)
[2017-02-18 19:59] LABS: ABSOLUTE LYMPHOCYTES (AUTO) 0.9 10^3/uL (0.5-4.7); ABSOLUTE MONOCYTES (AUTO) 0.8 10^3/uL (0.1-1.4); ABSOLUTE NEUT (AUTO) 12.2 10^3/uL (1.7-8.2); BASOPHILS % (AUTO) 0.3 % (0-2); HEMATOCRIT 28.8 % (36.0-47.0); HEMOGLOBIN 9.9 g/dL (12.0-15.5); HGB HCT DIFFERENCE 0.9; LYMPHOCYTES % (AUTO) 6.7 % (13-45); MEAN CORPUSCULAR HEMOGLOBIN 25.5 pg (27.0-33.4); MEAN CORPUSCULAR HGB CONC 34.5 g/dL (32.0-36.0); MEAN CORPUSCULAR VOLUME 74 fl (80-97); MONOCYTES % (AUTO) 5.6 % (3-13); RED CELL DISTRIBUTION WIDTH 25.4 % (11.5-14.0); SEGMENTED NEUTROPHILS % (AUTO) 87.4 % (42-78)
[2017-02-18 20:12] LABS: ALANINE AMINOTRANSFERASE 92 U/L (9-52); ALBUMIN 2.2 g/dL (3.5-5.0); ALKALINE PHOSPHATASE 167 U/L (38-126); ASPARTATE AMINO TRANSFERASE 187 U/L (14-36); BILIRUBIN,DIRECT 0.2 mg/dL (0.0-0.4); BILIRUBIN,TOTAL 0.3 mg/dL (0.2-1.3); BLOOD UREA NITROGEN 17 mg/dL (7-20); CALCIUM 7.1 mg/dL (8.4-10.2); CREATININE RESULT 0.78 mg/dL (0.52-1.25); GLUCOSE 109 mg/dL (75-110); LDH 1652 U/L (313-618); TOTAL PROTEIN 4.8 g/dL (6.3-8.2); URIC ACID 7.8 mg/dL (2.5-6.2)
[2017-02-18 20:14] LABS: PROTHROMBIN TIME 12.2 SEC (11.4-15.4)
[2017-02-18 20:15] LABS: ANISOCYTOSIS 2+; HYPOCHROMASIA 1+; MICROCYTOSIS 2+; PARTIAL THROMBOPLASTIN TIME 28.8 SEC (23.5-35.8)
[2017-02-18 20:16] LABS: FIBRINOGEN 598 mg/dL (209-497); HELMET CELLS SLIGHT; POIKILOCYTOSIS 1+; POLYCHROMASIA SLIGHT; SCHISTOCYTES SLIGHT; TEAR DROP CELLS SLIGHT
[2017-02-18 20:24] LABS: CARBON DIOXIDE 25 mmol/L (22-30); CHLORIDE 104 mmol/L (98-107); POTASSIUM 4.5 mmol/L (3.6-5.0); SODIUM 130.7 mmol/L (137-145)
[2017-02-18 20:26] LABS: ANION GAP 2 (5-19)
[2017-02-18 20:28] LABS: MAGNESIUM 4.2 mg/dL (1.6-2.3)
[2017-02-18] MEDS ORDERED: HYDRALAZINE HCL INJ/PF 20 MG/1 ML SDV IV PRN (20:51)
[2017-02-18] MEDS ORDERED: LABETALOL HCL 200 MG TABLET PO SCH (22:00)
[2017-02-18] MEDS ORDERED: LABETALOL HCL 200 MG TABLET NG SCH (22:00)
[2017-02-19] MEDS: OXYCODONE-ACETAMINOPHEN 5-325 MG TABLET PO PRN ×2 (03:35→15:18)
[2017-02-19 07:12] LABS: HEMATOCRIT 26.8 % (36.0-47.0); HGB HCT DIFFERENCE 0.2; MEAN CORPUSCULAR HEMOGLOBIN 25.1 pg (27.0-33.4); MEAN CORPUSCULAR HGB CONC 33.6 g/dL (32.0-36.0); MEAN CORPUSCULAR VOLUME 75 fl (80-97); RED BLOOD COUNT 3.59 10^6/uL (3.72-5.28); RED CELL DISTRIBUTION WIDTH 26.1 % (11.5-14.0)
[2017-02-19 07:31] LABS: ALANINE AMINOTRANSFERASE 67 U/L (9-52); ALBUMIN 2.2 g/dL (3.5-5.0); ALKALINE PHOSPHATASE 142 U/L (38-126); ASPARTATE AMINO TRANSFERASE 105 U/L (14-36); BILIRUBIN,DIRECT 0.3 mg/dL (0.0-0.4); BILIRUBIN,TOTAL 0.4 mg/dL (0.2-1.3); BLOOD UREA NITROGEN 20 mg/dL (7-20); CALCIUM 7.1 mg/dL (8.4-10.2); CARBON DIOXIDE 26 mmol/L (22-30); CREATININE RESULT 0.72 mg/dL (0.52-1.25); GLUCOSE 81 mg/dL (75-110); POTASSIUM 4.6 mmol/L (3.6-5.0); TOTAL PROTEIN 4.9 g/dL (6.3-8.2)
[2017-02-19 07:43] LABS: CHLORIDE 105 mmol/L (98-107); SODIUM 131.9 mmol/L (137-145)
[2017-02-19 07:47] LABS: ANION GAP 1 (5-19)
--- NOTE | 2017-02-19 07:59 | PDOC PROGRESS REPORT ---
Subjective Subjective:: Pt reports good pain control, no n/v, no flatus No s/s of Pre-E Physical Exam - Physical Exam Vital Signs: Temp Pulse Resp BP Pulse Ox 99.4 F 73 16 145/95 H 100 02/19/17 03:21 02/19/17 03:21 02/19/17 03:21 02/19/17 03:21 02/19/17 03:21 Intake & Output 02/18/17 02/19/17 02/20/17 06:59 06:59 06:59 Intake Total 2407 Output Total 1085 Balance 1322 General appearance: PRESENT: no acute distress, cooperative, well-developed GI/Abdominal exam: PRESENT: normal bowel sounds, soft - Incision bandage is clean and intact Extremities exam: PRESENT: +1 edema - DTR's 2/4 b/l No clonus Result Laboratory Results: 02/19/17 06:39 02/19/17 06:39 02/18/17 02/18/17 02/19/17 19:30 19:30 06:39 WBC 14.0 H RBC 3.90 Hgb 9.9 L Hct 28.8 L MCV 74 L MCH 25.5 L MCHC 34.5 RDW 25.4 H Plt Count 128 L Seg Neutrophils % 87.4 H Lymphocytes % 6.7 L Monocytes % 5.6 Eosinophils % 0.0 Basophils % 0.3 Absolute Neutrophils 12.2 H Absolute Lymphocytes 0.9 Absolute Monocytes 0.8 Absolute Eosinophils 0.0 Absolute Basophils 0.0 Sodium 130.7 L 131.9 L Potassium 4.5 4.6 Chloride 104 105 Carbon Dioxide 25 26 Anion Gap 2 L 1 L BUN 17 20 Creatinine 0.78 0.72 Est GFR ( Amer) > 60 > 60 Est GFR (Non-Af Amer) > 60 > 60 Glucose 109 81 Uric Acid 7.8 H Calcium 7.1 L 7.1 L Magnesium 4.2 H* D Total Bilirubin 0.3 0.4 AST 187 H 105 H ALT 92 H 67 H Alkaline Phosphatase 167 H 142 H Total Protein 4.8 L 4.9 L Albumin 2.2 L 2.2 L 02/19/17 06:39 WBC 11.0 H RBC 3.59 L Hgb 9.0 L Hct 26.8 L MCV 75 L MCH 25.1 L MCHC 33.6 RDW 26.1 H Plt Count 114 L Seg Neutrophils % Lymphocytes % Monocytes % Eosinophils % Basophils % Absolute Neutrophils Absolute Lymphocytes Absolute Monocytes Absolute Eosinophils Absolute Basophils Sodium Potassium Chloride Carbon Dioxide Anion Gap BUN Creatinine Est GFR ( Amer) Est GFR (Non-Af Amer) Glucose Uric Acid Calcium Magnesium Total Bilirubin AST ALT Alkaline Phosphatase Total Protein Albumin Impressions: Obstetrics Ultrasound 02/17/17 00:00 IMPRESSION: Heterogeneous mass in the placenta as noted above which is suspicious for a placental abruption. Clinical correlation is recommended. Other findings as noted above Trimester of : Second trimester - 13 weeks 1 day to 27 [address] 02/17/17 12:42 IMPRESSION: NORMAL BRAIN CT WITHOUT CONTRAST. Chest X-Ray 02/18/17 06:00 IMPRESSION: No acute cardiopulmonary findings. Lines and tubes. Assessment & Plan - Diagnosis (1) Eclampsia Is this a current diagnosis for this admission?: Yes (2) HELLP syndrome Qualifiers: Trimester: unspecified trimester Qualified Code(s): O14.20 - HELLP syndrome (HELLP), unspecified trimester Is this a current diagnosis for this admission?: Yes - Time Time Spent with patient: Less than 15 minutes Critical Time spent with patient: Less than 15 minutes Anticipated discharge: Home - Will increase Labetalol to 400mg BID Will recheck labs in morning Within: within 48 hours
--- NOTE | 2017-02-19 09:01 | PDOC PROGRESS REPORT ---
Subjective Progress Note for:: 02/19/17 Subjective:: Patient is doing well post extubation. Minimal sore throat. Denies shortness of breath, chills nor fever. Denies chest congestion or chest pain. Physical Exam Vital Signs: Temp Pulse Resp BP Pulse Ox 99.0 F 70 16 136/82 H 99 02/19/17 08:11 02/19/17 08:11 02/19/17 08:11 02/19/17 08:11 02/19/17 08:11 Intake & Output 02/18/17 02/19/17 02/20/17 06:59 06:59 06:59 Intake Total 2407 Output Total 1085 Balance 1322 General appearance: PRESENT: no acute distress, cooperative, obese Head exam: PRESENT: normocephalic Eye exam: PRESENT: EOMI Mouth exam: PRESENT: moist, neck supple Neck exam: ABSENT: JVD Respiratory exam: PRESENT: clear to auscultation bob. ABSENT: rhonchi, wheezes Cardiovascular exam: PRESENT: RRR. ABSENT: gallop GI/Abdominal exam: PRESENT: hypoactive bowel sounds, soft. ABSENT: distended Extremities exam: PRESENT: other - Nonpitting edema Neurological exam: PRESENT: alert, awake, oriented to person, oriented to place , oriented to time, oriented to situation Skin exam: PRESENT: dry, warm. ABSENT: cyanosis Results Laboratory Results: 02/19/17 06:39 02/19/17 06:39 02/18/17 02/18/17 02/19/17 19:30 19:30 06:39 WBC 14.0 H RBC 3.90 Hgb 9.9 L Hct 28.8 L MCV 74 L MCH 25.5 L MCHC 34.5 RDW 25.4 H Plt Count 128 L Seg Neutrophils % 87.4 H Lymphocytes % 6.7 L Monocytes % 5.6 Eosinophils % 0.0 Basophils % 0.3 Absolute Neutrophils 12.2 H Absolute Lymphocytes 0.9 Absolute Monocytes 0.8 Absolute Eosinophils 0.0 Absolute Basophils 0.0 Sodium 130.7 L 131.9 L Potassium 4.5 4.6 Chloride 104 105 Carbon Dioxide 25 26 Anion Gap 2 L 1 L BUN 17 20 Creatinine 0.78 0.72 Est GFR ( Amer) > 60 > 60 Est GFR (Non-Af Amer) > 60 > 60 Glucose 109 81 Uric Acid 7.8 H Calcium 7.1 L 7.1 L Magnesium 4.2 H* D Total Bilirubin 0.3 0.4 AST 187 H 105 H ALT 92 H 67 H Alkaline Phosphatase 167 H 142 H Total Protein 4.8 L 4.9 L Albumin 2.2 L 2.2 L 02/19/17 06:39 WBC 11.0 H RBC 3.59 L Hgb 9.0 L Hct 26.8 L MCV 75 L MCH 25.1 L MCHC 33.6 RDW 26.1 H Plt Count 114 L Seg Neutrophils % Lymphocytes % Monocytes % Eosinophils % Basophils % Absolute Neutrophils Absolute Lymphocytes Absolute Monocytes Absolute Eosinophils Absolute Basophils Sodium Potassium Chloride Carbon Dioxide Anion Gap BUN Creatinine Est GFR ( Amer) Est GFR (Non-Af Amer) Glucose Uric Acid Calcium Magnesium Total Bilirubin AST ALT Alkaline Phosphatase Total Protein Albumin Impressions: Obstetrics Ultrasound 02/17/17 00:00 IMPRESSION: Heterogeneous mass in the placenta as noted above which is suspicious for a placental abruption. Clinical correlation is recommended. Other findings as noted above Trimester of : Second trimester - 13 weeks 1 day to 27 [address] 02/17/17 12:42 IMPRESSION: NORMAL BRAIN CT WITHOUT CONTRAST. Chest X-Ray 02/18/17 06:00 IMPRESSION: No acute cardiopulmonary findings. Lines and tubes. Assessment & Plan - Diagnosis (1) Acute respiratory failure with hypercapnia Is this a current diagnosis for this admission?: Yes (2) Eclampsia Is this a current diagnosis for this admission?: Yes (3) Transaminitis Is this a current diagnosis for this admission?: Yes (4) Hyperglycemia Is this a current diagnosis for this admission?: Yes - Time Time Spent with patient: Less than 15 minutes - Plan Summary Plan Summary: Patient stable and doing well post extubation. We will sign off on activities. Thank you so much for allowing us to participate in her care. Please reconsult us when necessary.
[2017-02-19] MEDS: LABETALOL HCL 200 MG TABLET PO SCH ×2 (11:25→21:26)
[2017-02-19] MEDS: PRENATAL VITAMIN W-O CA NO5/FE FUMARATE/FA CAPSULE PO SCH (11:25)
[2017-02-19] MEDS: DOCUSATE SODIUM 100 MG CAPSULE PO SCH ×2 (11:26→17:53)
[2017-02-19] MEDS: DIAZEPAM 2 MG TABLET PO SCH ×2 (11:26→17:53)
[2017-02-19 19:58] LABS: CHLAM PCR NOT DETECTED (NOT DETECT)
[2017-02-20] MEDS: PRENATAL VITAMIN W-O CA NO5/FE FUMARATE/FA CAPSULE PO SCH (10:00)
[2017-02-20] MEDS: LABETALOL HCL 200 MG TABLET PO SCH ×2 (10:00→21:47)
[2017-02-20] MEDS: DIAZEPAM 2 MG TABLET PO SCH ×2 (10:00→18:00)
[2017-02-20] MEDS: DOCUSATE SODIUM 100 MG CAPSULE PO SCH ×2 (10:00→18:00)
[2017-02-20] MEDS ORDERED: CLONIDINE HCL 0.1 MG TABLET PO ONE (21:00)
[2017-02-20] MEDS ORDERED: CLONIDINE 0.1 MG/24 HR PATCH.TDWK TD SCH ×2 (21:30→22:00)
[2017-02-21 08:00] LABS: HEMATOCRIT 26.7 % (36.0-47.0); HEMOGLOBIN 8.6 g/dL (12.0-15.5); HGB HCT DIFFERENCE -0.9; MEAN CORPUSCULAR HEMOGLOBIN 24.9 pg (27.0-33.4); MEAN CORPUSCULAR HGB CONC 32.1 g/dL (32.0-36.0); MEAN CORPUSCULAR VOLUME 78 fl (80-97); RED BLOOD COUNT 3.45 10^6/uL (3.72-5.28); RED CELL DISTRIBUTION WIDTH 26.2 % (11.5-14.0); WHITE BLOOD COUNT 8.4 10^3/uL (4.0-10.5)
[2017-02-21] MEDS: OXYCODONE-ACETAMINOPHEN 5-325 MG TABLET PO PRN ×2 (08:04→18:18)
[2017-02-21] MEDS: DOCUSATE SODIUM 100 MG CAPSULE PO SCH ×2 (10:32→17:58)
[2017-02-21] MEDS: NIFEDIPINE 30 MG TAB.ER.24 PO SCH (10:32)
[2017-02-21] MEDS: DIAZEPAM 2 MG TABLET PO SCH ×2 (10:33→17:58)
[2017-02-21] MEDS: PRENATAL VITAMIN W-O CA NO5/FE FUMARATE/FA CAPSULE PO SCH (10:33)
[2017-02-21] MEDS: LABETALOL HCL 200 MG TABLET PO SCH ×2 (10:33→21:22)
[2017-02-21] MEDS ORDERED: MEDROXYPROGESTERONE ACET INJ 150 MG/1 ML VIAL IM ONE (15:00)
[2017-02-21 16:42] LABS: BLOOD UREA NITROGEN 12 mg/dL (7-20); CALCIUM 8.4 mg/dL (8.4-10.2); CREATININE RESULT 0.62 mg/dL (0.52-1.25); GLUCOSE 79 mg/dL (75-110)
[2017-02-21 16:52] LABS: ALANINE AMINOTRANSFERASE 54 U/L (9-52); ALBUMIN 2.1 g/dL (3.5-5.0); ALKALINE PHOSPHATASE 127 U/L (38-126); ANION GAP 5 (5-19); ASPARTATE AMINO TRANSFERASE 43 U/L (14-36); CARBON DIOXIDE 26 mmol/L (22-30); CHLORIDE 107 mmol/L (98-107); POTASSIUM 4.2 mmol/L (3.6-5.0); SODIUM 137.6 mmol/L (137-145)
[2017-02-21 16:53] LABS: BILIRUBIN,DIRECT 0.3 mg/dL (0.0-0.4); BILIRUBIN,TOTAL 0.4 mg/dL (0.2-1.3); LDH 742 U/L (313-618); TOTAL PROTEIN 4.4 g/dL (6.3-8.2)
--- NOTE | 2017-02-21 17:49 | PDOC PROGRESS REPORT ---
Subjective Progress Note for:: 02/21/17 Subjective:: denies NEUMANN/blurry vision/RUQ pain. She denies any other concerns. She reports that she has a family h/o HTN and she reports that she is doing well on the clonidine patch. baby is at [facility] NICU and she would like to breast feed. consult placed. She desires tubal sterilization. Physical Exam - Physical Exam Vital Signs: Temp Pulse Resp BP Pulse Ox 98.9 F 78 16 136/86 H 98 02/21/17 16:00 02/21/17 16:00 02/21/17 16:00 02/21/17 16:00 02/21/17 16:00 Intake & Output 02/20/17 02/21/17 02/22/17 06:59 06:59 06:59 Intake Total 610 Balance 610 General appearance: PRESENT: no acute distress, well-developed, well-nourished Head exam: PRESENT: atraumatic, normocephalic Respiratory exam: PRESENT: clear to auscultation bob, symmetrical, unlabored Cardiovascular exam: PRESENT: RRR. ABSENT: diastolic murmur, rubs, systolic murmur Vascular exam: PRESENT: normal capillary refill GI/Abdominal exam: PRESENT: normal bowel sounds, soft. ABSENT: distended, guarding, mass, organolmegaly, rebound, tenderness Rectal exam: PRESENT: deferred Extremities exam: PRESENT: full ROM. ABSENT: calf tenderness, clubbing, pedal edema Neurological exam: PRESENT: alert, awake, oriented to person, oriented to place , oriented to time, oriented to situation, CN II-XII grossly intact. ABSENT: motor sensory deficit Psychiatric exam: PRESENT: appropriate affect, normal mood. ABSENT: homicidal ideation, suicidal ideation Skin exam: PRESENT: dry, intact, warm. ABSENT: cyanosis, rash Result Laboratory Results: 02/20/17 07:28 02/20/17 07:28 02/20/17 02/20/17 07:28 07:28 WBC 8.4 RBC 3.45 L Hgb 8.6 L Hct 26.7 L MCV 78 L MCH 24.9 L MCHC 32.1 RDW 26.2 H Plt Count 125 L Sodium 137.6 Potassium 4.2 Chloride 107 Carbon Dioxide 26 Anion Gap 5 BUN 12 Creatinine 0.62 Est GFR ( Amer) > 60 Est GFR (Non-Af Amer) > 60 Glucose 79 Calcium 8.4 Total Bilirubin 0.4 AST 43 H ALT 54 H Alkaline Phosphatase 127 H Total Protein 4.4 L Albumin 2.1 L Impressions: Obstetrics Ultrasound 02/17/17 00:00 IMPRESSION: Heterogeneous mass in the placenta as noted above which is suspicious for a placental abruption. Clinical correlation is recommended. Other findings as noted above Trimester of : Second trimester - 13 weeks 1 day to [address] 02/17/17 12:42 IMPRESSION: NORMAL BRAIN CT WITHOUT CONTRAST. Chest X-Ray 02/18/17 06:00 IMPRESSION: No acute cardiopulmonary findings. Lines and tubes. Assessment & Plan - Diagnosis (1) Eclampsia Is this a current diagnosis for this admission?: YesPlan: s/p delivery. Doing well. Pt with still elevated BP. Poss component of CTHN. Currently on Labetolol 400mg BID and Clonidine 0.1mg patch daily. BPs with improved control. Will monitor overnight and if still adequate control in the am then will discharge to home. DepoProvera given for contraception today. She desires BTL. plan for BTL interval at 6wks pp. She will need to f/u in the office. (2) HELLP syndrome Qualifiers: Trimester: unspecified trimester Qualified Code(s): O14.20 - HELLP syndrome (HELLP), unspecified trimester Is this a current diagnosis for this admission?: YesPlan: LFTs improved. Platlets still low. Will repeat labs in am. - Time Time Spent with patient: 15-24 minutes Critical Time spent with patient: Less than 15 minutes Medications reviewed and adjusted accordingly: Yes Anticipated discharge: Home Within: within 24 hours - Inpatient Certification Based on my medical assessment, after consideration of the patient's comorbidities, presenting symptoms, or acuity I expect that the services needed warrant INPATIENT care.: Yes I certify that my determination is in accordance with my understanding of Medicare's requirements for reasonable and necessary INPATIENT services [42 CFR 412.3e].: Yes Medical Necessity: Need Close Monitoring Due to Risk of Patient Decompensation 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
[2017-02-22] MEDS: OXYCODONE-ACETAMINOPHEN 5-325 MG TABLET PO PRN ×2 (01:42→09:25)
[2017-02-22 08:06] VITALS: BP 137/85
[2017-02-22 08:23] LABS: ABSOLUTE EOSINOPHILS # (AUTO) 0.1 10^3/uL (0.0-0.6); ABSOLUTE LYMPHOCYTES (AUTO) 2.2 10^3/uL (0.5-4.7); ABSOLUTE MONOCYTES (AUTO) 0.4 10^3/uL (0.1-1.4); ABSOLUTE NEUT (AUTO) 4.6 10^3/uL (1.7-8.2); BASOPHILS % (AUTO) 0.3 % (0-2); EOSINOPHILS % (AUTO) 1.5 % (0-6); HEMOGLOBIN 9.8 g/dL (12.0-15.5); HGB HCT DIFFERENCE -0.6; LYMPHOCYTES % (AUTO) 29.9 % (13-45); MEAN CORPUSCULAR HEMOGLOBIN 24.9 pg (27.0-33.4); MEAN CORPUSCULAR HGB CONC 32.6 g/dL (32.0-36.0); MEAN CORPUSCULAR VOLUME 76 fl (80-97); MONOCYTES % (AUTO) 5.6 % (3-13); RED BLOOD COUNT 3.93 10^6/uL (3.72-5.28); RED CELL DISTRIBUTION WIDTH 25.4 % (11.5-14.0); SEGMENTED NEUTROPHILS % (AUTO) 62.7 % (42-78); WHITE BLOOD COUNT 7.4 10^3/uL (4.0-10.5)
[2017-02-22 08:24] LABS: ALANINE AMINOTRANSFERASE 35 U/L (9-52); ALBUMIN 2.6 g/dL (3.5-5.0); ALKALINE PHOSPHATASE 110 U/L (38-126); ANION GAP 7 (5-19); ASPARTATE AMINO TRANSFERASE 26 U/L (14-36); BILIRUBIN,DIRECT 0.2 mg/dL (0.0-0.4); BILIRUBIN,TOTAL 0.3 mg/dL (0.2-1.3); BLOOD UREA NITROGEN 13 mg/dL (7-20); CARBON DIOXIDE 27 mmol/L (22-30); CHLORIDE 105 mmol/L (98-107); CREATININE RESULT 0.62 mg/dL (0.52-1.25); GLUCOSE 73 mg/dL (75-110); POTASSIUM 4.1 mmol/L (3.6-5.0); SODIUM 139.1 mmol/L (137-145); TOTAL PROTEIN 5.2 g/dL (6.3-8.2)
--- NOTE | 2017-02-22 08:33 | PDOC PROGRESS REPORT ---
Subjective Progress Note for:: 02/22/17 Subjective:: denies NEUMANN/blurry vision/RUQ pain. She denies any other concerns. She reports that she has a family h/o HTN and she reports that she is doing well on the clonidine patch. baby is at [facility] NICU and she would like to breast feed. consult done - breast pump in room. She desires tubal sterilization and will f/u as outpt for procedure. Physical Exam - Physical Exam Vital Signs: Temp Pulse Resp BP Pulse Ox 98.0 F 81 16 137/85 H 100 02/22/17 08:05 02/22/17 08:05 02/22/17 08:05 02/22/17 08:05 02/22/17 08:05 Intake & Output 02/21/17 02/22/17 02/23/17 06:59 06:59 06:59 Intake Total 650 300 Balance 650 300 General appearance: PRESENT: no acute distress, well-developed, well-nourished Head exam: PRESENT: atraumatic, normocephalic Respiratory exam: PRESENT: chest wall tenderness, symmetrical, unlabored Cardiovascular exam: PRESENT: RRR. ABSENT: diastolic murmur, rubs, systolic murmur Pulses: PRESENT: normal dorsalis pedis pul, +2 pedal pulses bilateral Vascular exam: PRESENT: normal capillary refill GI/Abdominal exam: PRESENT: normal bowel sounds, soft. ABSENT: distended, guarding, mass, organolmegaly, rebound, tenderness Rectal exam: PRESENT: deferred Extremities exam: PRESENT: full ROM. ABSENT: calf tenderness, clubbing, pedal edema Neurological exam: PRESENT: alert, awake, oriented to person, oriented to place , oriented to time, oriented to situation, CN II-XII grossly intact. ABSENT: motor sensory deficit Psychiatric exam: PRESENT: appropriate affect, normal mood. ABSENT: homicidal ideation, suicidal ideation Skin exam: PRESENT: dry, intact, warm. ABSENT: cyanosis, rash Result Laboratory Results: 02/22/17 06:52 02/20/17 02/20/17 02/22/17 07:28 07:28 06:52 WBC 8.4 RBC 3.45 L Hgb 8.6 L Hct 26.7 L MCV 78 L MCH 24.9 L MCHC 32.1 RDW 26.2 H Plt Count 125 L Sodium 137.6 139.1 Potassium 4.2 4.1 Chloride 107 105 Carbon Dioxide 26 27 Anion Gap 5 7 BUN 12 13 Creatinine 0.62 0.62 Est GFR ( Amer) > 60 > 60 Est GFR (Non-Af Amer) > 60 > 60 Glucose 79 73 L Calcium 8.4 9.0 Total Bilirubin 0.4 0.3 AST 43 H 26 ALT 54 H 35 Alkaline Phosphatase 127 H 110 Total Protein 4.4 L 5.2 L Albumin 2.1 L 2.6 L Impressions: Obstetrics Ultrasound 02/17/17 00:00 IMPRESSION: Heterogeneous mass in the placenta as noted above which is suspicious for a placental abruption. Clinical correlation is recommended. Other findings as noted above Trimester of : Second trimester - 13 weeks 1 day to [address] 02/17/17 12:42 IMPRESSION: NORMAL BRAIN CT WITHOUT CONTRAST. Chest X-Ray 02/18/17 06:00 IMPRESSION: No acute cardiopulmonary findings. Lines and tubes. Assessment & Plan - Diagnosis (1) Eclampsia Is this a current diagnosis for this admission?: YesPlan: s/p delivery. Doing well. Poss component of CTHN. Currently on Labetolol 400mg BID and Clonidine 0.1mg patch weekly and Adalat 30mg daily. BPs with improved control and stable for discharge. Will monitor overnight and if still adequate control in the am then will discharge to home. DepoProvera given for contraception yesterday. She desires BTL. plan for BTL interval at 6wks pp. She will need to f/u in the office Saturday. (2) HELLP syndrome Qualifiers: Trimester: unspecified trimester Qualified Code(s): O14.20 - HELLP syndrome (HELLP), unspecified trimester Is this a current diagnosis for this admission?: YesPlan: LFTs normalized. Platlets still low. Labs normal. 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 F/u on Saturday
--- NOTE | 2017-02-22 08:38 | PDOC DISCHARGE SUMMARY ---
General - Admit/Disc Date/PCP Admission Date/Primary Care Provider: 02/18/17 15:31 RADHA ROMAN MD Discharge Date: 02/22/17 - Discharge Diagnosis (1) Eclampsia Is this a current diagnosis for this admission?: YesSummary: S/p Urgent Primary C/S for Eclampsia. Labs now normalized. Pt BPs stable on Adalat/Labetolol/Clonidine (2) HELLP syndrome Is this a current diagnosis for this admission?: YesSummary: now resolved - Additional Information Discharge Diet: As Tolerated, Regular Discharge Activity: Activity As Tolerated, No Driving, No Lifting Over 10 Pounds , Pelvic Rest, Slowly Increase Activity, No tub bath Home Medications: Clonidine [Catapres-Tts 1 (0.1 mg/24 Hr) Transderm Patch] 1 each TD We@2200 #4 patch.tdwk 02/22/17 Docusate Sodium [Colace 100 mg Capsule] 100 mg PO BID #0 capsule 02/22/17 Labetalol HCl [Normodyne 200 mg Tablet] 400 mg PO Q12 #60 tablet 02/22/17 Nifedipine [Procardia XL 30 mg Tablet] 30 mg PO DAILY #30 tab.er.24 02/22/17 Oxycodone HCl/Acetaminophen [Percocet 5-325 mg Tablet] 1 - 2 tab PO Q4HP PRN # 30 tablet 02/22/17 Pnv W-O Ca No5/Fe Fumarate/FA [-U Multiple Vitamin Capsule] 1 cap PO DAILY #30 capsule 02/22/17 Simethicone [Mylicon 80 mg Chewable Tablet] 80 mg PO QIDP PRN #60 tab.chew 02/22 History of Present Illness Patient complains of: brought in by EMS seizing on 02/17 History of Present Illness: TONY MELTON is a 26 year old female brought in for seizures, Eclampsia for at 26-29wks and no care. Extubated on POD#1 and has tolerated advance of care well. Labs and BP now stablized and meets criteria for discharge. Hospital Course Hospital Course: 26 year old female brought in for seizures, Eclampsia for at 26-29wks and no care. Extubated on POD#1 and has tolerated advance of care well. Labs and BP now stablized and meets criteria for discharge. Physical Exam - Physical Exam Vital Signs: Temp Pulse Resp BP Pulse Ox 98.0 F 81 16 137/85 H 100 02/22/17 08:05 02/22/17 08:05 02/22/17 08:05 02/22/17 08:05 02/22/17 08:05 Intake & Output 02/21/17 02/22/17 02/23/17 06:59 06:59 06:59 Intake Total 650 300 Balance 650 300 General appearance: PRESENT: no acute distress, well-developed, well-nourished Head exam: PRESENT: atraumatic, normocephalic Respiratory exam: PRESENT: clear to auscultation bob, symmetrical, unlabored Cardiovascular exam: PRESENT: RRR. ABSENT: diastolic murmur, rubs, systolic murmur Pulses: PRESENT: normal dorsalis pedis pul, +2 pedal pulses bilateral GI/Abdominal exam: PRESENT: normal bowel sounds, soft. ABSENT: distended, guarding, mass, organolmegaly, rebound, tenderness Rectal exam: PRESENT: deferred Extremities exam: PRESENT: full ROM. ABSENT: calf tenderness, clubbing, pedal edema Musculoskeletal exam: PRESENT: ambulatory Neurological exam: PRESENT: alert, awake, oriented to person, oriented to place , oriented to time, oriented to situation, CN II-XII grossly intact. ABSENT: motor sensory deficit Psychiatric exam: PRESENT: appropriate affect, normal mood. ABSENT: homicidal ideation, suicidal ideation Skin exam: PRESENT: dry, intact, warm. ABSENT: cyanosis, rash Result Laboratory Results: 02/22/17 06:52 02/20/17 02/20/17 02/22/17 07:28 07:28 06:52 WBC 8.4 RBC 3.45 L Hgb 8.6 L Hct 26.7 L MCV 78 L MCH 24.9 L MCHC 32.1 RDW 26.2 H Plt Count 125 L Sodium 137.6 139.1 Potassium 4.2 4.1 Chloride 107 105 Carbon Dioxide 26 27 Anion Gap 5 7 BUN 12 13 Creatinine 0.62 0.62 Est GFR ( Amer) > 60 > 60 Est GFR (Non-Af Amer) > 60 > 60 Glucose 79 73 L Calcium 8.4 9.0 Total Bilirubin 0.4 0.3 AST 43 H 26 ALT 54 H 35 Alkaline Phosphatase 127 H 110 Total Protein 4.4 L 5.2 L Albumin 2.1 L 2.6 L Impressions: Obstetrics Ultrasound 02/17/17 00:00 IMPRESSION: Heterogeneous mass in the placenta as noted above which is suspicious for a placental abruption. Clinical correlation is recommended. Other findings as noted above Trimester of : Second trimester - 13 weeks 1 day to [address] 02/17/17 12:42 IMPRESSION: NORMAL BRAIN CT WITHOUT CONTRAST. Chest X-Ray 02/18/17 06:00 IMPRESSION: No acute cardiopulmonary findings. Lines and tubes. Plan Discharge Plan: Discharge to home today Time Spent: Less than 30 Minutes
[2017-02-22 08:39] LABS: ANISOCYTOSIS 3+; HYPOCHROMASIA SLIGHT; MICROCYTOSIS SLIGHT; POIKILOCYTOSIS SLIGHT; POLYCHROMASIA SLIGHT; TARGET CELLS SLIGHT; TEAR DROP CELLS SLIGHT
[2017-02-22] MEDS: NIFEDIPINE 30 MG TAB.ER.24 PO SCH (09:16)
[2017-02-22] MEDS: DOCUSATE SODIUM 100 MG CAPSULE PO SCH (09:16)
[2017-02-22] MEDS: LABETALOL HCL 200 MG TABLET PO SCH (09:16)
[2017-02-22] MEDS: PRENATAL VITAMIN W-O CA NO5/FE FUMARATE/FA CAPSULE PO SCH (09:17)
[2017-02-22] MEDS: DIAZEPAM 2 MG TABLET PO SCH (09:17)
== END 2017-02-22 09:45 | disposition home or self-care (01) | DRG 765 ==
LOC: ER 11:56 → UNDOADMIN 13:29 → LR 13:29 → ICU 14:44 → 2N 02-18 18:35
PROVIDERS: ADMIT Obstetrics & Gynecology; ATTEND Obstetrics & Gynecology
PROC: 10D00Z1 Extraction of Products of Conception, Low, Open Approach (ICD-10-PCS; principal; 2017-02-17)
PROC: 5A1935Z Respiratory Ventilation, Less than 24 Consecutive Hours (ICD-10-PCS; 2017-02-17)
DX: O15.02 Eclampsia complicating pregnancy, second trimester (principal); O45.92 Premature separation of placenta, unspecified, second trimester; J96.02 Acute respiratory failure with hypercapnia; O14.22 HELLP syndrome (HELLP), second trimester; O69.1XX0 Labor and delivery complicated by cord around neck, with compression, not applicable or unspecified; O13.2 Gestational [pregnancy-induced] hypertension without significant proteinuria, second trimester; O99.334 Smoking (tobacco) complicating childbirth; O75.89 Other specified complications of labor and delivery; R56.9 Unspecified convulsions; R74.0 Nonspecific elevation of levels of transaminase and lactic acid dehydrogenase [LDH]; R73.9 Hyperglycemia, unspecified; Z3A.26 26 weeks gestation of pregnancy; Z37.0 Single live birth; O09.32 Supervision of pregnancy with insufficient antenatal care, second trimester
CPT/HCPCS: 1961; 36415; 36430; 70450; 71010; 76815; 80053; 80307; 81001; 82803; 83615; 83735; 84443; 84550; 85025; 85027; 85362; 85384; 85610; 85730; 86592; 86701; 86762; 86850; 86900; 86901; 86920; 87491; 87591; 88307; 94002; 94003; 94799; 99291; C1765; J0330; J0360; J0690; J0702; J1050; J2270; J2590; J2704; J3010; J3475; J3490; J7120; P9016

== ENCOUNTER 2017-05-13 06:54 | Day surgery (SDC) | payer MEDICAID ==
[2017-05-10 12:28] LABS: HEMATOCRIT 29.6 % (36.0-47.0); HEMOGLOBIN 9.3 g/dL (12.0-15.5); HGB HCT DIFFERENCE -1.7; MEAN CORPUSCULAR HEMOGLOBIN 23.2 pg (27.0-33.4); MEAN CORPUSCULAR HGB CONC 31.3 g/dL (32.0-36.0); MEAN CORPUSCULAR VOLUME 74 fl (80-97); RED BLOOD COUNT 3.99 10^6/uL (3.72-5.28); RED CELL DISTRIBUTION WIDTH 18.4 % (11.5-14.0); WHITE BLOOD COUNT 3.9 10^3/uL (4.0-10.5)
[2017-05-10 12:29] LABS: APPEARANCE,URINE HAZY; BILIRUBIN,URINE MODERATE (NEGATIVE); GLUCOSE, URINE NEGATIVE (NEGATIVE); KETONES,URINE NEGATIVE (NEGATIVE); LEUKOCYTE ESTERASE,URINE TRACE (NEGATIVE); NITRITE,URINE NEGATIVE (NEGATIVE); PROTEIN,URINE >=500 mg/dL (NEGATIVE); URINE SPECIFIC GRAVITY 1.032; UROBILINOGEN,URINE NEGATIVE mg/dL (<2.0)
[~2017-05-13 06:54] MED LIST: FENTANYL CITRATE INJ/PF 100 MCG/2 ML AMPUL ONE; MIDAZOLAM 2 MG/2 ML INJ ONE; PROPOFOL INJ 200 MG/20 ML VIAL IV ONE; RINGERS SOLUTION,LACTATED 1,000 ML IV PRN
[2017-05-13] MEDS ORDERED: ACETAMINOPHEN 325 MG TABLET ONE (08:14)
[2017-05-13] MEDS ORDERED: FENTANYL CITRATE INJ/PF 100 MCG/2 ML AMPUL ONE ×2 (08:17→10:47)
[2017-05-13] MEDS ORDERED: PROPOFOL INJ 200 MG/20 ML VIAL IV ONE (09:18)
[2017-05-13] MEDS ORDERED: DIPHENHYDRAMINE HCL 50 MG/ML VIAL IV PRN (10:03)
[2017-05-13] MEDS ORDERED: PROMETHAZINE HCL INJ 25 MG/1 ML VIAL IV PRN (10:03)
[2017-05-13] MEDS ORDERED: FENTANYL CITRATE INJ/PF 100 MCG/2 ML AMPUL IV PRN ×3 (10:03)
[2017-05-13] MEDS ORDERED: MORPHINE SULFATE 10 MG/ML INJ IV PRN (10:03)
[2017-05-13] MEDS ORDERED: MEPERIDINE HCL/PF INJ 25 MG/1 ML DISP.SYRIN IV PRN (10:03)
[2017-05-13] MEDS ORDERED: OXYCODONE-ACETAMINOPHEN 5-325 MG TABLET PO PRN ×2 (11:17→11:18)
[2017-05-13] MEDS ORDERED: MORPHINE SULFATE 10 MG/ML INJ IM PRN (11:19)
[2017-05-13] MEDS ORDERED: ONDANSETRON HCL INJ/PF 4 MG/2 ML SDV ONE (13:29)
[2017-05-13] MEDS ORDERED: LIDOCAINE 2% INJ-PF (20 MG/ML) 10 ML AMPUL ONE (13:29)
[2017-05-13] MEDS ORDERED: SUCCINYLCHOLINE CHLORIDE INJ 200 MG/10 ML VIAL ONE (13:29)
[2017-05-13] MEDS ORDERED: DEXAMETHASONE SOD PHOSPHATE INJ 4 MG/1 ML VIAL ONE (13:29)
[2017-05-13 13:34] VITALS: BP 133/91
--- NOTE | 2017-05-13 13:37 | OPERATIVE REPORT E ---
Operative Report NAME: TONY MELTON : 1990 AGE: 27Y DATE OF SURGERY: 05/13/2017 ROOM: PREOPERATIVE DIAGNOSES: 1. Undesired fertility. 2. History of eclampsia. 3. History of HELLP syndrome. 4. Chronic hypertension. POSTOPERATIVE DIAGNOSES: 1. Undesired fertility. 2. History of eclampsia. 3. History of HELLP syndrome. 4. Chronic hypertension. PROCEDURE: Laparoscopic bilateral salpingectomy. SURGEON: RADHA ROMAN M.D. ANESTHESIA: Dr. Benson with general. COMPLICATIONS: None. FINDINGS: Normal uterus, tubes and ovaries. Mild omental adhesions to the anterior abdominal wall. ESTIMATED BLOOD LOSS: 10 mL. SPECIMENS REMOVED: Bilateral fallopian tubes. PROCEDURE IN DETAIL: Patient was taken to the operating room, prepared and draped in a normal sterile fashion in a dorsal lithotomy position under sterile conditions, and an in-and-out cath was performed of approximately 50 mL of clear urine. A sterile speculum was placed in the vagina. The cervix was prepped with Betadine. The cervix was then penetrated with a Hulka clamp for uterine manipulation. The speculum was removed, the gloves were changed, and attention was turned to the upper portion of the case where an umbilical skin incision was made to accommodate a 5-mm port. A Veress needle was introduced into the peritoneal cavity with placement confirmed by free flow of sterile water through the needle as well as a beginning pressure of less than 10 mmHg. The abdomen was insufflated with approximately 2 L of CO2 gas. The Veress needle was removed and a 5-mm trocar was placed through this incision without difficulty. A camera was introduced and the above findings were noted. Under direct visualization two 5-mm ports were placed in the right and left lower quadrants. The patient was placed in steep Trendelenburg and under direct visualization an atraumatic grasper was placed through one of the ports and the bowel was swept away. The right fallopian tube was then elevated and using a LigaSure through the other port the fallopian tube was followed along the mesosalpinx and transected with a LigaSure. This was then removed through the port. This procedure was repeated on the left adnexa and complete removal of that fallopian tube was accomplished. The ports were then removed under direct visualization. The abdomen was deflated through the umbilical port and the skin was closed at all 3 sites with 4-0 Vicryl. The patient tolerated the procedure well. Sponge, lap and needle counts were correct x2. The patient was taken to recovery in stable condition. DICTATING PHYSICIAN: RADHA ROMAN M.D. [id number] PHY#: [id number] ID: [id number] JOB#: [id number] ACCT: [id number] cc:RADHA ROMAN M.D. >
== END 2017-05-13 12:30 | disposition home or self-care (01) ==
LOC: OROUT 06:54
PROVIDERS: ATTEND Obstetrics & Gynecology
PROC: 0UT74ZZ Resection of Bilateral Fallopian Tubes, Percutaneous Endoscopic Approach (ICD-10-PCS; principal; 2017-05-13 09:00)
DX: Z30.2 Encounter for sterilization (principal); K66.0 Peritoneal adhesions (postprocedural) (postinfection); I10 Essential (primary) hypertension; F17.210 Nicotine dependence, cigarettes, uncomplicated; D64.9 Anemia, unspecified; Z30.09 Encounter for other general counseling and advice on contraception; Z79.899 Other long term (current) drug therapy
CPT/HCPCS: 36415; 85027; 81005; 81025; 88302 ×2; 58661; J3490 ×2; J2250; J1100; J3010; J0330; J2405; J2704; 840

== ENCOUNTER 2019-05-30 06:50 | Emergency (ER) | payer MEDICAID ==
[2019-05-30 06:56] VITALS: BP 149/88
== END 2019-05-30 07:26 | disposition left against medical advice (07) ==
LOC: ER 06:50
DX: Z53.21 Procedure and treatment not carried out due to patient leaving prior to being seen by health care provider (principal)

== ENCOUNTER 2020-09-05 12:53 | Emergency (ER) | payer MEDICAID ==
[2020-09-05] MEDS ORDERED: NORMAL SALINE 1000 ML 1,000 ML IV ONE ×2 (13:47→17:00)
[2020-09-05] MEDS ORDERED: ONDANSETRON HCL INJ/PF 4 MG/2 ML SDV IV ONE (13:47)
--- NOTE | 2020-09-05 13:49 | ER Document Report ---
ED Medical Screen (RME) - General Chief Complaint: Nausea/Vomiting/Diarrhea Stated Complaint: VOMITING Time Seen by Provider: 09/05/20 13:47 Information source: Patient Notes: Presents complaining of nausea vomiting diarrhea for the past 2 days. Patient states she has had some chest pain although it is resolved at this time. Patient denies any fever cough. Patient denies any concerns about Covid. Patient reports vomiting over 5 times and having diarrhea over 3 times. Patient denies any chronic medical problems. I have greeted and performed a rapid initial assessment of this patient. A comprehensive ED assessment and evaluation of the patient, analysis of test results and completion of the medical decision making process will be conducted by additional ED providers. TRAVEL OUTSIDE OF THE [place] IN LAST 30 DAYS: No - Related Data Allergies/Adverse Reactions: ibuprofen [From Motrin] Allergy (Verified 05/30/19 06:52) Past Medical History - Past Medical History Cardiac Medical History: Reports: Hx Hypertension Denies: Hx Coronary Artery Disease, Hx Heart Attack Pulmonary Medical History: Denies: Hx Asthma, Hx Bronchitis, Hx COPD, Hx Pneumonia Neurological Medical History: Reports: Hx Seizures - FEBRUARY 2017. Denies: Hx Cerebrovascular Accident Musculoskeltal Medical History: Denies Hx Arthritis - Immunizations Immunizations up to date: Yes Hx Diphtheria, Pertussis, Tetanus Vaccination: Yes Physical Exam - Vital signs Vitals: Temp Pulse Resp BP Pulse Ox 98.2 F 74 16 152/96 H 100 09/05/20 12:57 09/05/20 12:57 09/05/20 12:57 09/05/20 12:57 09/05/20 12:57 - General General appearance: Alert - Cardiovascular Rhythm: Regular Heart sounds: S1 appreciated, S2 appreciated Course - Vital Signs Vital signs: Temp Pulse Resp BP Pulse Ox 98.2 F 74 16 152/96 H 100 09/05/20 12:57 09/05/20 12:57 09/05/20 12:57 09/05/20 12:57 09/05/20 12:57
--- NOTE | 2020-09-05 14:08 | RADIOLOGY REPORT (SQ) ---
EXAM DESCRIPTION: CHEST SINGLE VIEW IMAGES COMPLETED DATE/TIME: 09/05/2020 1:59 pm REASON FOR STUDY: cp COMPARISON: 02/09/2011 EXAM PARAMETERS: NUMBER OF VIEWS: One view. TECHNIQUE: Single frontal radiographic view of the chest acquired. RADIATION DOSE: NA LIMITATIONS: None. FINDINGS: LUNGS AND PLEURA: No opacities, masses or pneumothorax. No pleural effusion. MEDIASTINUM AND HILAR STRUCTURES: No masses. Contour normal. HEART AND VASCULAR STRUCTURES: Heart normal in size. Normal vasculature. BONES: No acute findings. HARDWARE: None in the chest. OTHER: No other significant finding. IMPRESSION: NO ACUTE RADIOGRAPHIC FINDING IN THE CHEST. TECHNICAL DOCUMENTATION: JOB ID: [id number] 2010 [employer]- All Rights Reserved Reading location - IP/workstation name: [email or web address]
[2020-09-05] MEDS ORDERED: ONDANSETRON 4 MG TAB.RAPDIS PO ONE (15:50)
[2020-09-05 16:44] VITALS: BP 144/99
[2020-09-05 17:11] LABS: HEMATOCRIT 24.9 % (36.0-47.0); MEAN CORPUSCULAR HEMOGLOBIN 19.8 pg (27.0-33.4); MEAN CORPUSCULAR HGB CONC 30.6 g/dL (32.0-36.0); MEAN CORPUSCULAR VOLUME 65 fl (80-97); PLATELET COUNT 295 10^3/uL (150-450); RED BLOOD COUNT 3.86 10^6/uL (3.72-5.28); RED CELL DISTRIBUTION WIDTH 22.4 % (11.5-14.0)
[2020-09-05 17:20] LABS: ALBUMIN 4.3 g/dL (3.5-5.0); ALKALINE PHOSPHATASE 69 U/L (38-126); ANION GAP 6 (5-19); ASPARTATE AMINO TRANSFERASE 18 U/L (14-36); BILIRUBIN,DIRECT 0.1 mg/dL (0.0-0.4); BILIRUBIN,TOTAL 0.4 mg/dL (0.2-1.3); BLOOD UREA NITROGEN 10 mg/dL (7-20); CALCIUM 9.8 mg/dL (8.4-10.2); CARBON DIOXIDE 26 mmol/L (22-30); CHLORIDE 108 mmol/L (98-107); GLUCOSE 111 mg/dL (75-110); POTASSIUM 3.8 mmol/L (3.6-5.0); TOTAL PROTEIN 7.4 g/dL (6.3-8.2)
[2020-09-05 17:29] LABS: ABSOLUTE LYMPHOCYTES# (MANUAL) 0.8 10^3/uL (0.5-4.7); ABSOLUTE MONOCYTES # (MANUAL) 0.1 10^3/uL (0.1-1.4); BASOPHILS % (MANUAL) 0 % (0-2); EOSINOPHILS % (MANUAL) 0 % (0-6); LYMPHOCYTES % (MANUAL) 14 % (13-45); MONOCYTES % (MANUAL) 2 % (3-13); PLATELET CLUMPS PRESENT; PLATELET COMMENT ADEQUATE; PLATELET LARGE PRESENT; SEGMENTED NEUTROPHILS % (MAN) 83 % (42-78); TOTAL CELLS COUNTED 100
[2020-09-05 17:31] LABS: ANISOCYTOSIS 3+; HYPOCHROMASIA 3+; OVALOCYTES 1+; POIKILOCYTOSIS 2+; POLYCHROMASIA 1+; TARGET CELLS 2+
[2020-09-05 17:33] LABS: HEMOGLOBIN 7.6 g/dL (12.0-15.5)
--- NOTE | 2020-09-05 18:27 | ER Document Report ---
ED General - General Chief Complaint: Nausea/Vomiting/Diarrhea Stated Complaint: VOMITING Time Seen by Provider: 09/05/20 13:47 Mode of Arrival: Ambulatory Information source: Patient Notes: Patient presents to the ER for evaluation of nausea, vomiting, diarrhea with generalized abdominal cramping x2 days. She denies fever. She denies cough or congestion. She denies low back pain. She denies dysuria. She denies any exposure to COVID-19. The patient states she does have a history of iron deficiency anemia but denies any recent weakness or fatigue. Nursing notes reviewed and past medical, social, and family histories reviewed and validated. TRAVEL OUTSIDE OF THE [place] IN LAST 30 DAYS: No - Related Data Allergies/Adverse Reactions: ibuprofen [From Motrin] Allergy (Verified 05/30/19 06:52) Past Medical History - General Information source: Patient - Social History Smoking Status: Former Smoker Chew tobacco use (# tins/day): No Frequency of alcohol use: None Drug Abuse: None Lives with: Family Family History: Hypertension, Other - Aneurysm of the brain Patient has suicidal ideation: No Patient has homicidal ideation: No - Past Medical History Cardiac Medical History: Reports: Hx Hypertension Denies: Hx Coronary Artery Disease, Hx Heart Attack Pulmonary Medical History: Denies: Hx Asthma, Hx Bronchitis, Hx COPD, Hx Pneumonia EENT Medical History: Reports: None Neurological Medical History: Reports: Hx Seizures - FEBRUARY 2017. Denies: Hx Cerebrovascular Accident Endocrine Medical History: Reports: None Renal/ Medical History: Reports: None Malignancy Medical History: Reports: None GI Medical History: Reports: Other - Iron deficiency anemia Musculoskeletal Medical History: Denies Hx Arthritis Skin Medical History: Reports None Psychiatric Medical History: Reports: None Traumatic Medical History: Reports: None Infectious Medical History: Reports: None Past Surgical History: Reports: None - Immunizations Immunizations up to date: Yes Hx Diphtheria, Pertussis, Tetanus Vaccination: Yes Hx Pneumococcal Vaccination: 11/02/12 Review of Systems - Review of Systems Notes: Constitutional: Negative for fever. HENT: Negative for sore throat. Eyes: Negative for visual changes. Cardiovascular: Negative for chest pain. Respiratory: Negative for shortness of breath. Gastrointestinal: Positive for abdominal pain. Positive for nausea, vomiting, diarrhea. Genitourinary: Negative for dysuria. Musculoskeletal: Negative for back pain. Skin: Negative for rash. Neurological: Negative for headaches, weakness or numbness. 10 point ROS negative except as marked above and in HPI. Physical Exam - Vital signs Vitals: Temp Pulse Resp BP Pulse Ox 98.2 F 74 16 152/96 H 100 09/05/20 12:57 09/05/20 12:57 09/05/20 12:57 09/05/20 12:57 09/05/20 12:57 - Notes Notes: CONSTITUTIONAL: Well appearing. No acute distress. SKIN: Warm, dry, and intact without rash EYES: Extraocular movements are grossly intact, clear conjunctiva HENT: Normocephalic, atraumatic, dry mucus membranes NECK: No obvious swelling, normal range of motion PULMONARY: Normal chest rise and fall. Breath sounds clear and equal bilaterally. No respiratory distress or stridor CARDIOVASCULAR: Regular rate. No murmurs, rubs, gallops. Distal extremities are warm and well perfused. ABDOMINAL: The abdomen is soft. There is no significant tenderness noted. NEUROLOGIC: Normal speech, moves all extremities. Cranial nerves are within normal limits. Wire Brush Maker strength strong and equal in the upper extremities bilaterally. There is good strength and sensation in bilateral lower extremities. There is no arm or leg drift noted. MUSCULOSKELETAL: No gross deformities, atraumatic PSYCHIATRIC: Normal mood and affect Course - Re-evaluation Re-evalutation: 09/05/20 18:24 Rechecked patient who has responded well to treatment in the ER. She is found to be anemic but has a longstanding history of anemia. She will follow-up with her primary care doctor for this. She is supposed to be taking iron but is not currently taking any medications. Discussed with patient: results, diagnosis, treatment plan, and need for follow-up. Return to the emergency department warnings were given. All questions and concerns were addressed. The plan is agreed with and understood. Patient is stable and ready for discharge. - Vital Signs Vital signs: Temp Pulse Resp BP Pulse Ox 97.8 F 56 L 18 144/99 H 100 09/05/20 16:34 09/05/20 16:34 09/05/20 16:34 09/05/20 16:34 09/05/20 16:34 - Laboratory Result Diagrams: 09/05/20 16:51 09/05/20 16:51 Laboratory results interpreted by me: 09/05/20 09/05/20 16:51 16:51 Hgb 7.6 L Hct 24.9 L MCV 65 L MCH 19.8 L MCHC 30.6 L RDW 22.4 H Seg Neuts % (Manual) 83 H Monocytes % (Manual) 2 L Chloride 108 H Glucose 111 H Discharge - Discharge Clinical Impression: Generalized abdominal pain, Nausea vomiting and diarrhea, Chronic anemia Condition: Good Disposition: HOME, SELF-CARE Instructions: Abdominal Pain ([facility]) Additional Instructions: Push fluids. Medications as prescribed. Return to the emergency room if your symptoms change or worsen. Prescriptions: Promethazine HCl [Phenergan 25 mg Tablet] 25 mg PO Q8HP PRN #12 tablet PRN Reason: For Nausea/Vomiting
[2020-09-05] MEDS ORDERED: PROMETHAZINE HCL 25 MG TABLET PO ONE (18:50)
--- NOTE | 2020-09-05 19:46 | EKG REPORT ---
SEVERITY:- ABNORMAL ECG - SINUS RHYTHM PROBABLE LEFT VENTRICULAR HYPERTROPHY : Confirmed by: Avtar Herring MD 05-Sep-2020 19:45:46
== END 2020-09-05 18:58 | disposition home or self-care (01) ==
LOC: ER 12:53
DX: R11.2 Nausea with vomiting, unspecified (principal); R19.7 Diarrhea, unspecified; R10.84 Generalized abdominal pain; D50.9 Iron deficiency anemia, unspecified; T45.4X6A Underdosing of iron and its compounds, initial encounter; Z91.14 Patient's other noncompliance with medication regimen; I10 Essential (primary) hypertension; Z88.8 Allergy status to other drugs, medicaments and biological substances; Z87.891 Personal history of nicotine dependence
CPT/HCPCS: 93005; 99285; 96360; 36415; 83690; 84703; 85025; 80053; 84484; 71045; 93010; S0119; J3490; J7030